=== PATIENT | male | born 1950 | race Two or more races ===

== ENCOUNTER → 2022-04-11 | Outpatient (CLI) | payer MEDICARE, OTHER | END | disposition home or self-care (01) | LOC: Rad HDHVI 08:52 | PROVIDERS: ATTEND Internal Medicine Cardiovascular Disease | DX: I10 Essential (primary) hypertension (principal); E78.00 Pure hypercholesterolemia, unspecified | CPT/HCPCS: 93880 ==

== ENCOUNTER → 2022-04-13 | Outpatient (CLI) | payer MEDICARE, OTHER | END | disposition home or self-care (01) | LOC: Rad HDHVI 07:59 | PROVIDERS: ATTEND Internal Medicine Cardiovascular Disease | DX: I08.3 Combined rheumatic disorders of mitral, aortic and tricuspid valves (principal); R06.02 Shortness of breath; I10 Essential (primary) hypertension | CPT/HCPCS: 93306 ==

== ENCOUNTER → 2022-04-20 | Outpatient (CLI) | payer MEDICARE, OTHER ==
[~2022-04-20] VITALS: Ht 175.3 cm; Wt 79.8 kg
[~2022-04-20] MED LIST: ADENOSINE 67 MG in GIVE UN-DILUTED 0 ML IV ONE; ADENOSINE 90 MG/30 ML INJ IV ONE
== END | disposition home or self-care (01) ==
LOC: Rad HDHVI 08:43
PROVIDERS: ATTEND Internal Medicine Cardiovascular Disease
DX: I10 Essential (primary) hypertension (principal); E78.5 Hyperlipidemia, unspecified; E78.00 Pure hypercholesterolemia, unspecified; R06.02 Shortness of breath; Z79.899 Other long term (current) drug therapy
CPT/HCPCS: 78452; 93005; 96374; 96375; A9500; J0153

== ENCOUNTER → 2022-06-01 | Outpatient (CLI) | payer MEDICARE ==
[~2022-06-01] MED LIST changes: -ADENOSINE 67 MG in GIVE UN-DILUTED 0 ML IV ONE; -ADENOSINE 90 MG/30 ML INJ IV ONE; +ASCO100076 PO; +ASPI1TAB19 PO; +CARB45TA PO; +CHOL500033 PO; +CLOP75TA28 PO; +COEN200C9 PO; +CYAN100088 PO; +FLUO1TAB14 PO; +HYDR-4798 PO; +LISI-275 PO; +MELO1TAB56 PO; +ZINC50TA7 PO
[2022-06-01 10:05] VITALS: BP 164/81
[2022-06-01 10:30] VITALS: BP 158/79
[2022-06-01 12:20] LABS: Basophils # (auto) 0 10 ^3/uL (0-0.2); Basophils % (auto) 0.4 % (0.0-2.0); Eosinophils # (auto) 0 10 ^3/uL (0-0.8); Eosinophils % (auto) 1.3 % (0.0-7.0); Hematocrit 42.4 % (41.0-53.0); Hemoglobin 14.3 g/dL (13.5-17.5); Lymphocytes % (auto) 39.3 % (10.0-50.0); Mean Corpuscular Hemoglobin 30.6 pg (28.0-32.0); Mean Corpuscular Hgb Conc. 33.6 g/dL (32.0-36.0); Mean Corpuscular Volume 90.8 fL (80.0-100.0); Monocytes # (auto) 0.3 10 ^3/uL (0-1.3); Monocytes % (auto) 12.2 % (0.0-12.0); Neutrophils # (auto) 1.2 10 ^3/uL (1.6-8.6); Neutrophils % (auto) 46.8 % (37.0-80.0); Nucleated Red Blood Cells % 0.1 %; Red Blood Cells 4.67 10^6/uL (4.5-5.90); Red Cell Distribution Width 13.8 % (11.8-14.3); White Blood Cell 2.6 10^3/uL (4.4-10.8)
[2022-06-01 12:27] LABS: Potassium 3.7 mmol/L (3.5-5.1)
[2022-06-01 12:30] LABS: INR 0.99 (0.9-1.15); Partial Thromboplastin Time 30.6 sec (24.6-33.4)
[2022-06-01 12:32] LABS: BUN/Creatinine Ratio 15.9; Calcium 8.5 mg/dL (8.5-10.1)
== END | disposition home or self-care (01) ==
LOC: Rad HDHVI 09:53
PROVIDERS: ATTEND Internal Medicine Cardiovascular Disease
DX: R06.02 Shortness of breath (principal)
CPT/HCPCS: 36415; 71046; 80048; 85025; 85610; 85730; 93005; G0463

== ENCOUNTER 2022-06-02 07:08 | Day surgery (SDC) | payer MEDICARE ==
[~2022-06-02] VITALS: Ht 175.3 cm; Wt 79.4 kg
[2022-06-02] VITALS (9 sets, daily range): BP systolic 149–173; BP diastolic 81–90
[2022-06-02] MEDS ORDERED: SODIUM CHL 0.9% 0 ML ONE (09:03)
[2022-06-02] MEDS ORDERED: fentaNYL CITRATE 100 MCG/2 ML VL ONE (09:03)
[2022-06-02] MEDS ORDERED: MIDAZOLAM HCL 2MG/2ML 2ml VIAL (1mg/ml) ONE (09:03)
[2022-06-02] MEDS ORDERED: IOHEXOL 350 MG/ML 100ML IJ ONE (09:03)
[2022-06-02] MEDS ORDERED: ANGIOMAX 250 MG VIAL IV ONE (09:03)
[2022-06-02] MEDS ORDERED: LIDOCAINE 2%HCL (LOCAL ANESTH.) INJ 10ml MDV ONE (09:15)
== END 2022-06-02 12:10 | disposition home or self-care (01) ==
LOC: CATH 07:08
PROVIDERS: ATTEND Internal Medicine Cardiovascular Disease
DX: R07.89 Other chest pain (principal); I25.10 Atherosclerotic heart disease of native coronary artery without angina pectoris; I73.9 Peripheral vascular disease, unspecified; I10 Essential (primary) hypertension; Z79.899 Other long term (current) drug therapy; Z20.822 Contact with and (suspected) exposure to COVID-19
CPT/HCPCS: 93458; C1760; C1894; J1644; J2001; J2250; J3010; Q9967; U0003; 99152

== ENCOUNTER → 2022-07-13 | Outpatient (CLI) | payer MEDICARE ==
[2022-07-13 11:52] VITALS: BP 126/78
[2022-07-13 12:05] VITALS: BP 130/78
== END | disposition home or self-care (01) ==
LOC: CHF HDHVI 10:49
PROVIDERS: ATTEND Internal Medicine Cardiovascular Disease
DX: I11.0 Hypertensive heart disease with heart failure (principal); I50.43 Acute on chronic combined systolic (congestive) and diastolic (congestive) heart failure; I25.118 Atherosclerotic heart disease of native coronary artery with other forms of angina pectoris; I73.9 Peripheral vascular disease, unspecified; R06.02 Shortness of breath; E78.00 Pure hypercholesterolemia, unspecified
CPT/HCPCS: G0166

== ENCOUNTER → 2022-07-14 | Outpatient (CLI) | payer MEDICARE ==
[2022-07-14 11:53] VITALS: BP 150/82
[2022-07-14 12:04] VITALS: BP 150/76
== END | disposition home or self-care (01) ==
LOC: CHF HDHVI 10:42
PROVIDERS: ATTEND Internal Medicine Cardiovascular Disease
DX: I25.118 Atherosclerotic heart disease of native coronary artery with other forms of angina pectoris (principal); I73.9 Peripheral vascular disease, unspecified; R06.02 Shortness of breath; I11.0 Hypertensive heart disease with heart failure; I50.43 Acute on chronic combined systolic (congestive) and diastolic (congestive) heart failure; E78.00 Pure hypercholesterolemia, unspecified
CPT/HCPCS: G0166

== ENCOUNTER → 2022-07-15 | Outpatient (CLI) | payer MEDICARE ==
[2022-07-15 11:04] VITALS: BP 154/80
[2022-07-15 11:41] VITALS: BP 150/84
== END | disposition home or self-care (01) ==
LOC: CHF HDHVI 10:39
PROVIDERS: ATTEND Internal Medicine Cardiovascular Disease
DX: I25.118 Atherosclerotic heart disease of native coronary artery with other forms of angina pectoris (principal); I73.9 Peripheral vascular disease, unspecified; R06.02 Shortness of breath; E78.00 Pure hypercholesterolemia, unspecified; I10 Essential (primary) hypertension
CPT/HCPCS: G0166

== ENCOUNTER → 2022-07-29 | Outpatient (CLI) | payer MEDICARE ==
[2022-07-29 11:50] VITALS: BP 158/80
[2022-07-29 12:03] VITALS: BP 150/78
== END | disposition home or self-care (01) ==
LOC: CHF HDHVI 10:46
PROVIDERS: ATTEND Internal Medicine Cardiovascular Disease
DX: I25.118 Atherosclerotic heart disease of native coronary artery with other forms of angina pectoris (principal); I73.9 Peripheral vascular disease, unspecified; R06.02 Shortness of breath; E78.00 Pure hypercholesterolemia, unspecified; I11.0 Hypertensive heart disease with heart failure; I50.43 Acute on chronic combined systolic (congestive) and diastolic (congestive) heart failure
CPT/HCPCS: G0166

== ENCOUNTER → 2022-08-03 | Outpatient (CLI) | payer MEDICARE ==
[2022-08-03 11:06] VITALS: BP 150/84
[2022-08-03 11:46] VITALS: BP 150/80
== END | disposition home or self-care (01) ==
LOC: CHF HDHVI 10:44
PROVIDERS: ATTEND Internal Medicine Cardiovascular Disease
DX: I11.0 Hypertensive heart disease with heart failure (principal); I50.43 Acute on chronic combined systolic (congestive) and diastolic (congestive) heart failure; I25.118 Atherosclerotic heart disease of native coronary artery with other forms of angina pectoris; E78.00 Pure hypercholesterolemia, unspecified; R06.02 Shortness of breath; I73.9 Peripheral vascular disease, unspecified
CPT/HCPCS: G0166

== ENCOUNTER → 2022-08-04 | Outpatient (CLI) | payer MEDICARE ==
[2022-08-04 11:45] VITALS: BP 132/76
[2022-08-04 11:50] VITALS: BP 138/76
== END | disposition home or self-care (01) ==
LOC: CHF HDHVI 10:40
PROVIDERS: ATTEND Internal Medicine Cardiovascular Disease
DX: I11.0 Hypertensive heart disease with heart failure (principal); I50.43 Acute on chronic combined systolic (congestive) and diastolic (congestive) heart failure; I25.118 Atherosclerotic heart disease of native coronary artery with other forms of angina pectoris; E78.00 Pure hypercholesterolemia, unspecified; R06.02 Shortness of breath; I73.9 Peripheral vascular disease, unspecified
CPT/HCPCS: G0166

== ENCOUNTER → 2022-08-05 | Outpatient (CLI) | payer MEDICARE ==
[2022-08-05 11:40] VITALS: BP 148/76
[2022-08-05 11:49] VITALS: BP 142/80
== END | disposition home or self-care (01) ==
LOC: CHF HDHVI 10:44
PROVIDERS: ATTEND Internal Medicine Cardiovascular Disease
DX: I25.118 Atherosclerotic heart disease of native coronary artery with other forms of angina pectoris (principal); I11.0 Hypertensive heart disease with heart failure; I50.43 Acute on chronic combined systolic (congestive) and diastolic (congestive) heart failure; I73.9 Peripheral vascular disease, unspecified; R06.02 Shortness of breath; E78.00 Pure hypercholesterolemia, unspecified
CPT/HCPCS: G0166

== ENCOUNTER → 2022-08-08 | Outpatient (CLI) | payer MEDICARE ==
[2022-08-08 11:56] VITALS: BP 154/78
[2022-08-08 12:12] VITALS: BP 142/80
== END | disposition home or self-care (01) ==
LOC: CHF HDHVI 10:44
PROVIDERS: ATTEND Internal Medicine Cardiovascular Disease
DX: I25.118 Atherosclerotic heart disease of native coronary artery with other forms of angina pectoris (principal); I50.43 Acute on chronic combined systolic (congestive) and diastolic (congestive) heart failure
CPT/HCPCS: G0166

== ENCOUNTER → 2022-08-10 | Outpatient (CLI) | payer MEDICARE ==
[2022-08-10 12:19] VITALS: BP 140/80
[2022-08-10 12:45] VITALS: BP 140/80
== END | disposition home or self-care (01) ==
LOC: CHF HDHVI 11:00
PROVIDERS: ATTEND Internal Medicine Cardiovascular Disease
DX: I25.118 Atherosclerotic heart disease of native coronary artery with other forms of angina pectoris (principal); I11.0 Hypertensive heart disease with heart failure; I50.43 Acute on chronic combined systolic (congestive) and diastolic (congestive) heart failure; I73.9 Peripheral vascular disease, unspecified; R06.02 Shortness of breath; E78.00 Pure hypercholesterolemia, unspecified
CPT/HCPCS: G0166

== ENCOUNTER → 2022-08-11 | Outpatient (CLI) | payer MEDICARE ==
[2022-08-11 11:41] VITALS: BP 160/84
[2022-08-11 12:04] VITALS: BP 156/86
[2022-08-11 12:18] VITALS: BP 156/86
== END | disposition home or self-care (01) ==
LOC: CHF HDHVI 10:44
PROVIDERS: ATTEND Internal Medicine Cardiovascular Disease
DX: I25.118 Atherosclerotic heart disease of native coronary artery with other forms of angina pectoris (principal); I73.9 Peripheral vascular disease, unspecified; R06.02 Shortness of breath; E78.00 Pure hypercholesterolemia, unspecified; I10 Essential (primary) hypertension
CPT/HCPCS: G0166

== ENCOUNTER → 2022-08-12 | Outpatient (CLI) | payer MEDICARE ==
[2022-08-12 12:03] VITALS: BP 158/86
[2022-08-12 12:16] VITALS: BP 160/80
== END | disposition home or self-care (01) ==
LOC: CHF HDHVI 10:45
PROVIDERS: ATTEND Internal Medicine Cardiovascular Disease
DX: I25.118 Atherosclerotic heart disease of native coronary artery with other forms of angina pectoris (principal); I11.0 Hypertensive heart disease with heart failure; I50.43 Acute on chronic combined systolic (congestive) and diastolic (congestive) heart failure; I73.9 Peripheral vascular disease, unspecified; R06.02 Shortness of breath; E78.00 Pure hypercholesterolemia, unspecified
CPT/HCPCS: G0166

== ENCOUNTER → 2022-08-18 | Outpatient (CLI) | payer MEDICARE ==
[2022-08-18 12:00] VITALS: BP 146/78
[2022-08-18 12:07] VITALS: BP 142/74
== END | disposition home or self-care (01) ==
LOC: CHF HDHVI 10:42
PROVIDERS: ATTEND Internal Medicine Cardiovascular Disease
DX: I25.118 Atherosclerotic heart disease of native coronary artery with other forms of angina pectoris (principal); I11.0 Hypertensive heart disease with heart failure; I50.43 Acute on chronic combined systolic (congestive) and diastolic (congestive) heart failure; R06.02 Shortness of breath; I73.9 Peripheral vascular disease, unspecified; E78.00 Pure hypercholesterolemia, unspecified
CPT/HCPCS: G0166

== ENCOUNTER → 2022-08-22 | Outpatient (CLI) | payer MEDICARE ==
[2022-08-22 12:08] VITALS: BP 150/86
[2022-08-22 12:15] VITALS: BP 150/80
== END | disposition home or self-care (01) ==
LOC: CHF HDHVI 10:51
PROVIDERS: ATTEND Internal Medicine Cardiovascular Disease
DX: I25.118 Atherosclerotic heart disease of native coronary artery with other forms of angina pectoris (principal); I73.9 Peripheral vascular disease, unspecified; R06.02 Shortness of breath; E78.00 Pure hypercholesterolemia, unspecified; I10 Essential (primary) hypertension
CPT/HCPCS: G0166

== ENCOUNTER → 2022-08-24 | Outpatient (CLI) | payer MEDICARE ==
[2022-08-24 11:52] VITALS: BP 146/80
[2022-08-24 12:00] VITALS: BP 138/80
== END | disposition home or self-care (01) ==
LOC: CHF HDHVI 10:20
PROVIDERS: ATTEND Internal Medicine Cardiovascular Disease
DX: I25.118 Atherosclerotic heart disease of native coronary artery with other forms of angina pectoris (principal); I11.0 Hypertensive heart disease with heart failure; I50.43 Acute on chronic combined systolic (congestive) and diastolic (congestive) heart failure; R06.02 Shortness of breath; I73.9 Peripheral vascular disease, unspecified; E78.00 Pure hypercholesterolemia, unspecified
CPT/HCPCS: G0166

== ENCOUNTER → 2022-08-25 | Outpatient (CLI) | payer MEDICARE ==
[2022-08-25 11:47] VITALS: BP 138/80
[2022-08-25 11:56] VITALS: BP 152/84
== END | disposition home or self-care (01) ==
LOC: CHF HDHVI 10:29
PROVIDERS: ATTEND Internal Medicine Cardiovascular Disease
DX: I25.118 Atherosclerotic heart disease of native coronary artery with other forms of angina pectoris (principal); I11.0 Hypertensive heart disease with heart failure; I50.43 Acute on chronic combined systolic (congestive) and diastolic (congestive) heart failure; R06.02 Shortness of breath; I73.9 Peripheral vascular disease, unspecified; E78.00 Pure hypercholesterolemia, unspecified
CPT/HCPCS: G0166

== ENCOUNTER → 2022-08-26 | Outpatient (CLI) | payer MEDICARE ==
[2022-08-26 11:59] VITALS: BP 162/90
[2022-08-26 12:07] VITALS: BP 150/84
== END | disposition home or self-care (01) ==
LOC: CHF HDHVI 10:43
PROVIDERS: ATTEND Internal Medicine Cardiovascular Disease
DX: I25.118 Atherosclerotic heart disease of native coronary artery with other forms of angina pectoris (principal); I11.0 Hypertensive heart disease with heart failure; I50.43 Acute on chronic combined systolic (congestive) and diastolic (congestive) heart failure; R06.02 Shortness of breath; I73.9 Peripheral vascular disease, unspecified; E78.00 Pure hypercholesterolemia, unspecified
CPT/HCPCS: G0166

== ENCOUNTER → 2022-08-31 | Outpatient (CLI) | payer MEDICARE ==
[2022-08-31 12:05] VITALS: BP 130/70
[2022-08-31 12:15] VITALS: BP 124/76
== END | disposition home or self-care (01) ==
LOC: CHF HDHVI 10:48
PROVIDERS: ATTEND Internal Medicine Cardiovascular Disease
DX: I25.118 Atherosclerotic heart disease of native coronary artery with other forms of angina pectoris (principal); R06.02 Shortness of breath; I73.9 Peripheral vascular disease, unspecified; I10 Essential (primary) hypertension; E78.00 Pure hypercholesterolemia, unspecified
CPT/HCPCS: G0166

== ENCOUNTER → 2022-09-01 | Outpatient (CLI) | payer MEDICARE ==
[2022-09-01 13:05] VITALS: BP 140/76
[2022-09-01 13:09] VITALS: BP 150/74
== END | disposition home or self-care (01) ==
LOC: CHF HDHVI 10:41
PROVIDERS: ATTEND Internal Medicine Cardiovascular Disease
DX: I25.118 Atherosclerotic heart disease of native coronary artery with other forms of angina pectoris (principal); I73.9 Peripheral vascular disease, unspecified; R06.02 Shortness of breath; I10 Essential (primary) hypertension; E78.00 Pure hypercholesterolemia, unspecified
CPT/HCPCS: G0166

== ENCOUNTER → 2022-09-05 | Outpatient (CLI) | payer MEDICARE ==
[2022-09-05 11:14] VITALS: BP 150/80
[2022-09-05 11:51] VITALS: BP 144/80
== END | disposition home or self-care (01) ==
LOC: CHF HDHVI 10:50
PROVIDERS: ATTEND Internal Medicine Cardiovascular Disease
DX: I25.118 Atherosclerotic heart disease of native coronary artery with other forms of angina pectoris (principal); I50.43 Acute on chronic combined systolic (congestive) and diastolic (congestive) heart failure
CPT/HCPCS: G0166

== ENCOUNTER → 2022-09-07 | Outpatient (CLI) | payer MEDICARE ==
[2022-09-07 12:08] VITALS: BP 138/74
[2022-09-07 12:14] VITALS: BP 120/76
== END | disposition home or self-care (01) ==
LOC: CHF HDHVI 10:41
PROVIDERS: ATTEND Internal Medicine Cardiovascular Disease
DX: I25.118 Atherosclerotic heart disease of native coronary artery with other forms of angina pectoris (principal); I11.0 Hypertensive heart disease with heart failure; I50.43 Acute on chronic combined systolic (congestive) and diastolic (congestive) heart failure; R06.02 Shortness of breath; E78.00 Pure hypercholesterolemia, unspecified; I73.9 Peripheral vascular disease, unspecified
CPT/HCPCS: G0166

== ENCOUNTER → 2022-09-08 | Outpatient (CLI) | payer MEDICARE ==
[2022-09-08 11:06] VITALS: BP 132/64
[2022-09-08 11:40] VITALS: BP 128/70
== END | disposition home or self-care (01) ==
LOC: CHF HDHVI 10:39
PROVIDERS: ATTEND Internal Medicine Cardiovascular Disease
DX: I25.118 Atherosclerotic heart disease of native coronary artery with other forms of angina pectoris (principal); I11.0 Hypertensive heart disease with heart failure; I50.43 Acute on chronic combined systolic (congestive) and diastolic (congestive) heart failure; E78.00 Pure hypercholesterolemia, unspecified; R06.02 Shortness of breath; I73.9 Peripheral vascular disease, unspecified
CPT/HCPCS: G0166

== ENCOUNTER → 2022-09-09 | Outpatient (CLI) | payer MEDICARE ==
[2022-09-09 11:22] VITALS: BP 132/74
[2022-09-09 11:41] VITALS: BP 142/76
== END | disposition home or self-care (01) ==
LOC: CHF HDHVI 10:36
PROVIDERS: ATTEND Internal Medicine Cardiovascular Disease
DX: I25.118 Atherosclerotic heart disease of native coronary artery with other forms of angina pectoris (principal); I10 Essential (primary) hypertension; E78.00 Pure hypercholesterolemia, unspecified; I73.9 Peripheral vascular disease, unspecified; R06.02 Shortness of breath
CPT/HCPCS: G0166

== ENCOUNTER → 2022-09-19 | Outpatient (CLI) | payer MEDICARE ==
[2022-09-19 11:18] VITALS: BP 138/76
[2022-09-19 11:35] VITALS: BP 140/78
== END | disposition home or self-care (01) ==
LOC: CHF HDHVI 10:35
PROVIDERS: ATTEND Internal Medicine Cardiovascular Disease
DX: I25.118 Atherosclerotic heart disease of native coronary artery with other forms of angina pectoris (principal); I11.0 Hypertensive heart disease with heart failure; I50.43 Acute on chronic combined systolic (congestive) and diastolic (congestive) heart failure; E78.00 Pure hypercholesterolemia, unspecified; I73.9 Peripheral vascular disease, unspecified; R06.02 Shortness of breath
CPT/HCPCS: G0166

== ENCOUNTER → 2022-09-21 | Outpatient (CLI) | payer MEDICARE ==
[2022-09-21 11:10] VITALS: BP 148/80
[2022-09-21 11:46] VITALS: BP 150/78
== END | disposition home or self-care (01) ==
LOC: CHF HDHVI 10:37
PROVIDERS: ATTEND Internal Medicine Cardiovascular Disease
DX: I25.118 Atherosclerotic heart disease of native coronary artery with other forms of angina pectoris (principal); R06.02 Shortness of breath; E78.00 Pure hypercholesterolemia, unspecified; I10 Essential (primary) hypertension; I73.9 Peripheral vascular disease, unspecified
CPT/HCPCS: G0166

== ENCOUNTER → 2022-09-26 | Outpatient (CLI) | payer MEDICARE ==
[2022-09-26 11:20] VITALS: BP 138/76
[2022-09-26 11:53] VITALS: BP 152/68
== END | disposition home or self-care (01) ==
LOC: CHF HDHVI 10:51
PROVIDERS: ATTEND Internal Medicine Cardiovascular Disease
DX: I25.118 Atherosclerotic heart disease of native coronary artery with other forms of angina pectoris (principal); I11.0 Hypertensive heart disease with heart failure; I50.43 Acute on chronic combined systolic (congestive) and diastolic (congestive) heart failure; R06.02 Shortness of breath; I73.9 Peripheral vascular disease, unspecified; E78.00 Pure hypercholesterolemia, unspecified
CPT/HCPCS: G0166

== ENCOUNTER → 2022-09-28 | Outpatient (CLI) | payer MEDICARE ==
[2022-09-28 11:08] VITALS: BP 138/74
[2022-09-28 11:52] VITALS: BP 136/78
== END | disposition home or self-care (01) ==
LOC: CHF HDHVI 10:43
PROVIDERS: ATTEND Internal Medicine Cardiovascular Disease
DX: I25.118 Atherosclerotic heart disease of native coronary artery with other forms of angina pectoris (principal); I11.0 Hypertensive heart disease with heart failure; I50.43 Acute on chronic combined systolic (congestive) and diastolic (congestive) heart failure; R06.02 Shortness of breath; I73.9 Peripheral vascular disease, unspecified; E78.00 Pure hypercholesterolemia, unspecified
CPT/HCPCS: G0166

== ENCOUNTER → 2022-10-03 | Outpatient (CLI) | payer MEDICARE ==
[2022-10-03 11:14] VITALS: BP 136/72
[2022-10-03 11:52] VITALS: BP 122/70
== END | disposition home or self-care (01) ==
LOC: CHF HDHVI 10:35
PROVIDERS: ATTEND Internal Medicine Cardiovascular Disease
DX: I11.0 Hypertensive heart disease with heart failure (principal); I50.43 Acute on chronic combined systolic (congestive) and diastolic (congestive) heart failure; I25.118 Atherosclerotic heart disease of native coronary artery with other forms of angina pectoris; I73.9 Peripheral vascular disease, unspecified; R06.02 Shortness of breath; E78.00 Pure hypercholesterolemia, unspecified
CPT/HCPCS: G0166

== ENCOUNTER → 2022-10-05 | Outpatient (CLI) | payer MEDICARE ==
[2022-10-05 12:34] VITALS: BP 142/74
[2022-10-05 12:39] VITALS: BP 138/80
== END | disposition home or self-care (01) ==
LOC: CHF HDHVI 10:41
PROVIDERS: ATTEND Internal Medicine Cardiovascular Disease
DX: I11.0 Hypertensive heart disease with heart failure (principal); I50.43 Acute on chronic combined systolic (congestive) and diastolic (congestive) heart failure; I25.118 Atherosclerotic heart disease of native coronary artery with other forms of angina pectoris; I73.9 Peripheral vascular disease, unspecified; E78.00 Pure hypercholesterolemia, unspecified; R06.02 Shortness of breath
CPT/HCPCS: G0166

== ENCOUNTER → 2022-10-06 | Outpatient (CLI) | payer MEDICARE ==
[2022-10-06 11:13] VITALS: BP 150/82
[2022-10-06 11:50] VITALS: BP 152/84
== END | disposition home or self-care (01) ==
LOC: CHF HDHVI 10:39
PROVIDERS: ATTEND Internal Medicine Cardiovascular Disease
DX: I11.0 Hypertensive heart disease with heart failure (principal); I50.43 Acute on chronic combined systolic (congestive) and diastolic (congestive) heart failure; I25.118 Atherosclerotic heart disease of native coronary artery with other forms of angina pectoris; I73.9 Peripheral vascular disease, unspecified; R06.02 Shortness of breath; E78.00 Pure hypercholesterolemia, unspecified
CPT/HCPCS: G0166

== ENCOUNTER → 2022-10-07 | Outpatient (CLI) | payer MEDICARE ==
[2022-10-07 11:03] VITALS: BP 142/68
[2022-10-07 11:40] VITALS: BP 142/82
== END | disposition home or self-care (01) ==
LOC: CHF HDHVI 10:38
PROVIDERS: ATTEND Internal Medicine Cardiovascular Disease
DX: I11.0 Hypertensive heart disease with heart failure (principal); I50.43 Acute on chronic combined systolic (congestive) and diastolic (congestive) heart failure; I25.118 Atherosclerotic heart disease of native coronary artery with other forms of angina pectoris; R06.02 Shortness of breath; I73.9 Peripheral vascular disease, unspecified; E78.00 Pure hypercholesterolemia, unspecified
CPT/HCPCS: G0166

== ENCOUNTER → 2023-01-18 | Outpatient (CLI) | payer MEDICARE, OTHER ==
[~2023-01-18] VITALS: Ht 175.3 cm; Wt 84.4 kg
[~2023-01-18] MED LIST changes: +ADENOSINE 71 MG in GIVE UN-DILUTED 0 ML IV ONE; +ADENOSINE 90 MG/30 ML INJ IV ONE; +MELO-335 PO; -MELO1TAB56 PO
== END | disposition home or self-care (01) ==
LOC: Rad HDHVI 08:14
PROVIDERS: ATTEND Internal Medicine Cardiovascular Disease
DX: I10 Essential (primary) hypertension (principal); R06.02 Shortness of breath; I20.0 Unstable angina
CPT/HCPCS: 78452; 93005; 96374; 96375; A9500; J0153

== ENCOUNTER → 2023-01-23 | Outpatient (CLI) | payer MEDICARE, OTHER ==
[~2023-01-23] MED LIST changes: -ADENOSINE 71 MG in GIVE UN-DILUTED 0 ML IV ONE; -ADENOSINE 90 MG/30 ML INJ IV ONE
== END | disposition home or self-care (01) ==
LOC: Rad HDHVI 09:45
PROVIDERS: ATTEND Internal Medicine Cardiovascular Disease
DX: I08.1 Rheumatic disorders of both mitral and tricuspid valves (principal); I10 Essential (primary) hypertension; E78.5 Hyperlipidemia, unspecified
CPT/HCPCS: 93306

== ENCOUNTER → 2023-02-28 | Outpatient (CLI) | payer MEDICARE, OTHER ==
[~2023-02-28] VITALS: Ht 175.3 cm; Wt 83.9 kg
== END | disposition home or self-care (01) ==
LOC: Rad HDHVI 08:06
PROVIDERS: ATTEND Internal Medicine Cardiovascular Disease
DX: I11.0 Hypertensive heart disease with heart failure (principal); I50.9 Heart failure, unspecified; I42.0 Dilated cardiomyopathy; E78.00 Pure hypercholesterolemia, unspecified; R53.1 Weakness
CPT/HCPCS: 78472; 96374; 96375; A9505

== ENCOUNTER 2023-10-04 09:56 | Emergency (ER) | payer MEDICARE, OTHER ==
[~2023-10-04] VITALS: Ht 175.3 cm; Wt 83.0 kg
[2023-10-04 10:05] VITALS: TEMP 97.4
[2023-10-04 12:08] VITALS: BP 160/98; PULSE 76; RESP 18; O2SAT 96
[2023-10-04] MEDS: cloNIDine HCL 0.1 MG TAB PO ONE (12:12)
[2023-10-04] MEDS ORDERED: CLON0.1T PO (12:29)
== END 2023-10-04 12:29 | disposition home or self-care (01) ==
LOC: ER 09:56
DX: I10 Essential (primary) hypertension (principal); Z76.0 Encounter for issue of repeat prescription

== ENCOUNTER 2025-02-10 10:06 | Inpatient (IN) | payer OTHER ==
[~2025-02-10] VITALS: Ht 175.3 cm; Wt 93.2 kg
[~2025-02-10 10:06] MED LIST changes: +CLON0.1T PO; -MELO-335 PO; +MELO15TA29 PO
--- NOTE | 2025-02-10 10:21 | ED.PDOC ---
History of Present Illness HPI Comments 74-year-old male who comes in with chief complaint of what seems to be possible syncopal episode versus a seizure. The patient was outside doing yd work with his grandson. He states that he has been outside since approximately 7:00 a.m. in the heat. He started to get somewhat lightheaded so he was headed into the house and then became somewhat lightheaded and sat down on the porch. Following this, the patient had a syncopal episode lasting approximately 1 minute which was witnessed by his family. They stated that the patient was having a shaking episode which seemed to be consistent with a seizure. The patient has no history of seizures. He states that he did not eat any food today. EN route, the patient's Accu-Chek was 157. Upon arrival, the patient is able to answer all questions appropriately. Patient was also 90% on air Time Seen by MD: 10:08 Primary Care Provider: UZMA Reviewed Notes: Nurses Notes, Medications, Allergies (No allergies to medications) Allergies: Coded Allergies: No Known Drug Allergy (Verified Allergy, Unknown, 06/01/22) Home Meds Active Scripts Clonidine Hydrochloride (Clonidine Hcl) 0.1 Mg Tab, 0.1 MG PO BID, #20 TAB Prov:DANIA BARRAGAN 10/04/23 Reported Medications Clopidogrel Bisulfate (Plavix) 75 Mg Tab, 1 TAB PO QAM for HEART DISEASE 06/01/22 Hydrocodone-Acetaminophen (Hydrocodone Bitartrate/AC 10-325 mg) 1 Tab Tab, 1 TAB PO Q6HR PRN for CHRONIC BACK PAIN 06/01/22 Coenzyme Q10 (Ubidecarenone) (Co Q-10) 200 Mg Cap, 1 CAP PO DAILY for SUPPLEMENT 06/01/22 Lisinopril (Lisinopril) 5 Mg Tab, 1 TAB PO QPM for HYPERTENSION 06/01/22 Aspirin (Aspirin) 81 Mg Tab, 1 TAB PO QPM for HEART ATTACK PREVENTION 06/01/22 Zinc Gluconate (Zinc) 50 Mg Tab, 1 TAB PO DAILY for SUPPLEMENT 06/01/22 Ascorbic Acid (Vitamin C) 1,000 Mg Tab, 1 TAB PO DAILY for SUPPLEMENT 06/01/22 Cyanocobalamin (Vitamin B-12) 1,000 Mcg Tab, 1 TAB PO DAILY for SUPPLEMENT 06/01/22 Iron (Feosol) 45 Mg Tab, 1 TAB PO DAILY for SUPPLEMENT 06/01/22 Cholecalciferol (Vitamin D-3) 5,000 Unit Cap, 1 CAP PO DAILY for SUPPLEMENT 06/01/22 Fluoxetine HCl (Pmdd) (Fluoxetine HCl) 20 Mg Tab, 20 MG PO QAM for DEPRESSION 06/01/22 Meloxicam (Meloxicam) 15 Mg Tab, 1 TAB PO QAM for ARTHRITIS 06/01/22 Information Source: Patient, Emergency Med Personnel Mode of Arrival: EMS Severity: Moderate Timing: Minutes Duration: Intermittent Prehospital treatment: Accucheck (157), Equine Internship, IVF Associated signs and symptoms No associated chest pain or shortness for breath Past Medical History PAST MEDICAL HISTORY: Cancer (Prostate cancer), HTN Surgical History: Cholecystectomy, Tonsillectomy Surgical History (Other): Back surgery Family History Family History: Family hx of Cancer Social History Smoker: Non-Smoker Alcohol: Denies ETOH Use Drugs: Denies Drug Use Lives In: Home Physical Exam General Appearance: Moderate Distress HEENT: Normal ENT Inspection, Pharynx Normal, TMs Normal Neck: Full Range of Motion, Non-Tender, Normal, Normal Inspection Respiratory: Chest Non-Tender, Lungs Clear, No Accessory Muscle Use, No Re spiratory Distress, Normal Breath Sounds Cardiovascular: No Edema, No JVD, No Murmur, No Gallop, Normal Peripheral Pulses, Regular Rate/Rhythm Breast Exam: Deferred Gastrointestinal: No Organomegaly, Non Tender, No Pulsatile Mass, Normal Bowel Sounds, Soft Genitalia: Deferred Pelvic: Deferred Rectal: Deferred Extremities: No calf tenderness, Normal capillary refill, Normal inspection, Normal range of motion, Non-tender, No pedal edema Musculoskeletal : Apperance: Normal Neurologic: Alert, technical services specialist II-XII nml as Tested, Motor Weakness, Normal Affect, Normal Mood, No Sensory Deficits Cerebellar Function: Unable to Test Reflexes: Normal Skin: Dry, Normal Color, Warm Lymphatic: No Adenopathy Was a procedure done? Was a procedure done?: No EKG EKG : Pulse Rate (adult): 65 [place]: Normal Cardiac Rhythm: NSR Block: None ST: Nonsp Differential Dx Considerations may include: Generalized weakness, electrolyte imbalance, dehydration, seizures X-Ray, Labs, Meds, VS Vital Signs Date Time Temp Pulse Resp B/P (MAP) Pulse Ox O2 Delivery O2 Flow Rate FiO2 7/14/25 10:30 97.6 63 16 123/63 (83) 97 97.6 02/10/25 10:30 Nasal Cannula* 2 28 02/10/25 10:21 65 02/10/25 10:18 65 02/10/25 10:17 97.8 65 14 116/70 (85) 94 97.8 Lab Test 02/10/25 11:37 02/10/25 11:30 02/10/25 10:27 Range/Units Urine Color Pending Urine Clarity Pending Urine pH Pending Urine Specific [place] Pending Urine Protein Pending Urine Ketones Pending Urine Blood Pending Urine Nitrite Pending Urine Bilirubin Pending Urine Urobilinogen Pending Urine Leukocyte Esterase Pending Urine RBC Pending Urine Microscopic WBC Pending Urine Squamous Epithelial Cells Pending Urine Bacteria Pending Urine Glucose Pending Troponin I High Sensitivity 3 L 3 L </=54 ng/L White Blood Count 5.6 4.4-10.8 10^3/uL Red Blood Count 5.04 4.5-5.90 10^6/uL Hemoglobin 15.5 13.5-17.5 g/dL Hematocrit 45.2 41.0-53.0 % Mean Corpuscular Volume 89.6 80.0-100.0 fL Mean Corpuscular Hemoglobin 30.6 28.0-32.0 pg Mean Corpuscular Hemoglobin Concent 34.2 32.0-36.0 g/dL Red Cell Distribution Width 13.3 11.8-14.3 % Platelet Count 153 140-450 10^3/uL Mean Platelet Volume 9.2 6.9-10.8 fL Neutrophils (%) (Auto) 77.1 37.0-80.0 % Lymphocytes (%) (Auto) 16.6 10.0-50.0 % Monocytes (%) (Auto) 5.3 0.0-12.0 % Eosinophils (%) (Auto) 0.6 0.0-7.0 % Basophils (%) (Auto) 0.4 0.0-2.0 % Neutrophils # (Auto) 4.3 1.6-8.6 10 ^3/uL Lymphocytes # (Auto) 0.9 0.4-5.4 10 ^3/uL Monocytes # (Auto) 0.3 0-1.3 10 ^3/uL Eosinophils # (Auto) 0 0-0.8 10 ^3/uL Basophils # (Auto) 0 0-0.2 10 ^3/uL Nucleated Red Blood Cells 0.1 % Sodium Level 142 136-145 mmol/L Potassium Level 3.9 3.5-5.1 mmol/L Chloride Level 108 H 98-107 mmol/L Carbon Dioxide Level 24 20-31 mmol/L Anion Gap 10 5-15 Blood Urea Nitrogen 16 9-23 mg/dL Creatinine 1.44 H 0.700-1.30 mg/dL Glomerular Filtration Rate Calc 52 >90 mL/min BUN/Creatinine Ratio 11.1 10.0-20.0 Serum Glucose 143 H 74-106 mg/dL Calcium Level 10.4 8.7-10.4 mg/dL Plasma/Serum Blood Alcohol < 3.0 <10 mg/dL Current Medications Medications (Trade) Dose Ordered Sig/Pedro Route Start Time Stop Time Status Last Admin Sodium Chloride 500 ml @ 500 mls/hr Q1H ONCE IVB 02/10/25 10:15 02/10/25 11:14 DC 02/10/25 10:38 IV Hep-Lock was established EXAM: CT HEAD WITHOUT CONTRAST IMPRESSION: 1. No evidence of acute intracranial abnormality IV HEP-LOCK WAS ESTABLISHED THE PATIENT WAS GIVEN NORMAL SALINE AT A 500 CC BOLUS THE PATIENT'S CBC IS WITHIN LIMITS CHEMISTRY PANEL IS WITHIN NORMAL LIMITS EXCEPT CREATININE FOUR THE PATIENT'S TROPONIN LEVEL IS NEGATIVE X2 THE PATIENT IS BEING ADMITTED TO THE HOSPITALIST Images Reviewed?: Images reviewed and evaluated by me Time of 1ST Reevaluation: 10:20 Reevaluation 1ST: Unchanged Patient Education/Counseling: Diagnosis, Treatment, Prognosis Family Education/Counseling: No Family Present SEPSIS Sepsis Screen Physician Orders Urinalysis (02/10/25 10:09) Head Without Contrast (02/10/25 10:09) Equine Internship (02/10/25 10:09) Pulse Oximetry (02/10/25 10:09) Blood Pressure (02/10/25 10:09) Heplock Iv (02/10/25 10:09) Troponin-I Hs (02/10/25 13:09) Electrocardigram (02/10/25 11:09) Electrocardigram (02/10/25 13:09) Aspirin Tablet (02/11/25 10:00) Hydralazine Injection (Apresoline Inject (02/10/25 12:15) Fluoxetine Capsule (Prozac Capsule) (02/11/25 10:00) Tamsulosin Hydrochloride (Flomax) (02/10/25 18:00) Allergies (02/10/25 12:01) Code Status (02/10/25 12:01) Sodium Chloride Lock (Saline Lock Ns) (02/10/25 14:00) Oxygen Per Hour (02/10/25 12:01) Hydrocodone-Acet 5/325mg Tab ([place] /32 (02/10/25 12:15) Ondansetron Hcl (Zofran) (02/10/25 12:15) Docusate Sodium Capsule (Colace Capsule) (02/10/25 12:15) Ascorbic Acid Tablet (Vitamin C Tablet) (02/10/25 22:00) Fall Risk Precautions In Place QSHIFT (02/10/25 12:01) Complete Blood Count (02/11/25 04:00) Comprehensive Metabolic Panel (02/11/25 04:00) Cardiac Diet-2gna,Lofat,Lochol (02/10/25 Lunch) Condition: Serious (02/10/25 12:01) Acetaminophen Tablet (Tylenol Tablet) (02/10/25 12:15) Maintain Bed Rest (02/10/25 12:01) Sequential Compression Device (02/10/25 ) Vital Signs Date Time Temp Pulse Resp B/P (MAP) Pulse Ox O2 Delivery O2 Flow Rate FiO2 02/10/25 10:30 97.6 63 16 123/63 (83) 97 97.6 02/10/25 10:30 Nasal Cannula* 2 28 02/10/25 10:21 65 02/10/25 10:18 65 02/10/25 10:17 97.8 65 14 116/70 (85) 94 97.8 Laboratory Tests Test 02/10/25 10:27 White Blood Count 5.6 10^3/uL (4.4-10.8) Medications Medications Dose Ordered Sig/Pedro Route Start Time Stop Time Status Last Admin Dose Admin Sodium Chloride 500 ml @ 500 mls/hr Q1H ONCE IVB 02/10/25 10:15 02/10/25 11:14 DC 02/10/25 10:38 Departure 1 Departure Time of Disposition: 12:30 Impression: Primary Impression: Dehydration Additional Impression: Autonomic dysfunction Disposition: 09 ADMITTED INPATIENT Admit to: Tele Condition: Fair Critical Care Note Critical Care Time?: Yes (45 min-critical care time only) Stability Stability form required: Yes Unstable for transfer: Telemetry monitoring (Telemetry monitoring required), ED Physician Assesment (Clinical assesment) Heart Score Heart Score: Heart Score Response (Comments) Value History N/A 0 EKG N/A 0 Age N/A 0 Risk Factors N/A 0 Troponin N/A 0 Total 0 I personally scribed for LUZ HERNANDEZ MD ([email or web address]) on 02/10/25 at 11:57. Electronically submitted by Monica Yanes ([email or web address]). LUZ HERNANDEZ MD Feb 10, 2025 10:21
--- NOTE | 2025-02-10 10:21 | ECG ---
[facility] Test Date: 2025-02-10 Test Time: 10:18:34 Pat Name: VEDA FUENTES Department: ER Room: [address] [place] [address] Gender: M Senior Mechanical Project Engineer: ANIL : 1950 Requested By: LUZ HERNANDEZ Order Number: [id number] Reading MD: Henry Amato Measurements Intervals [place] Rate: 65 P: 72 TN: 150 QRS: 19 QRSD: 93 T: -32 QT: 425 QTc: 442 Interpretive Statements Sinus rhythm Low voltage, precordial leads Borderline T abnormalities, inferior leads Electronically Signed On 02-10-2025 19:35:51 PDT by Henry Amato Please click the below link to view image of tracing.
[2025-02-10] MEDS: SODIUM CHLORIDE 0.9% 500 ML IVB ONE (10:38)
[2025-02-10 11:05] LABS: Hematocrit 45.2 % (41.0-53.0); Hemoglobin 15.5 g/dL (13.5-17.5); Mean Corpuscular Hemoglobin 30.6 pg (28.0-32.0); Mean Corpuscular Volume 89.6 fL (80.0-100.0); Nucleated Red Blood Cells % 0.1 %
[2025-02-10 11:06] LABS: Anion Gap 10 (5-15); Carbon Dioxide 24 mmol/L (20-31); Potassium 3.9 mmol/L (3.5-5.1); Sodium 142 mmol/L (136-145)
[2025-02-10 11:11] LABS: Calcium 10.4 mg/dL (8.7-10.4); Chloride 108 mmol/L (98-107)
[2025-02-10 11:12] LABS: BUN/Creatinine Ratio 11.1 (10.0-20.0); Blood Urea Nitrogen 16 mg/dL (9-23)
[2025-02-10 11:13] LABS: Glucose 143 mg/dL (74-106)
--- NOTE | 2025-02-10 11:21 | DVH ---
EXAM: CT HEAD WITHOUT CONTRAST INDICATION: Syncope TECHNIQUE: CT of the head without intravenous contrast. Coronal and sagittal reformatted images are s ubmitted. Radiation Dose : 1. Head: CT Dose: CTDI volume is 53.54 mGy. Dose-length product is 967.09 mGy*cm The dose indicators for CT are the volume Computed Tomography (CT) Dose Index (CTDIvol) and the Dose Length Product (DLP), and are measured in units of mGy and mGy-cm, respectively. These indicators are not patient dose, but values generated from the CT scanner acquisition factors. The report includes radiation exposure data for exposures received during this examination. All CT scans at this medical facility are performed using dose modulation techniques as appropriate to a performed exam including the following: Automated exposure control was utilized; adjustment of the MA and/or KV according to patient size; and use of iterative reconstruction technique. COMPARISON: None FINDINGS: There is no evidence of acute intracranial hemorrhage, extra-axial collection, mass effect, midline s hift, herniation or hydrocephalus. The ventricles, sulci and cisterns are age appropriate. The harkins-white differentiation is intact. The visualized paranasal sinuses and mastoid air cells are clear. No depressed calvarial fracture. The surrounding soft tissues are unremarkable. IMPRESSION: 1. No evidence of acute intracranial abnormality.
[2025-02-10] MEDS ORDERED: HYDROcodone-ACET 5/325MG TAB PO PRN (12:15)
[2025-02-10] MEDS ORDERED: ONDANSETRON HCL 4 MG/2 ML VIAL IV PRN (12:15)
[2025-02-10] MEDS ORDERED: DOCUSATE SOD 100 MG CAP PO PRN (12:15)
[2025-02-10] MEDS ORDERED: hydrALAZINE HCL 20 MG/ML VL IV PRN (12:15)
--- NOTE | 2025-02-10 12:25 | DVHHP2 ---
History of Present Illness Reason for Visit: Seizures History of Present Illness The patient is a 74-year-old male with past medical history of prostate cancer, depression, and hypertension who presented to [facility] ED with complaint of seizure. The patient was outside doing yard work with his grandson in the heat when he started to get somewhat lightheaded, so he headed into the house, then became more lightheaded and sat down on the porch. Following this, the patient had a syncopal episode lasting approximately 1 minute which was witnessed by his family, with shaking episode which seemed to be consistent with a seizure. The patient has no history of seizures. Patient was seen and evaluated in the ED, laboratory data shows WBC 5.6, platelets 153, sodium 142, potassium 3.9, BUN 16, creatinine 1.44, glucose 143, calcium 10.4, troponin three, blood pressure 123/63, heart rate 63, temperature 97.6 F, O2 saturation 97% on oxygen. Head CT showed no evidence of acute intracranial abnormality. On my assessment, patient denied chest pain, no headache, no dizziness, no diaphoresis, currently on oxygen, no nausea, no vomiting, no fever, no chills. Patient was admitted for further evaluation and medical management. Past Medical History Cancer (Prostate cancer), HTN, Depression. Past Surgical History Cholecystectomy, Tonsillectomy, Back surgery Family History Reviewed, noncontributory to the management of this case. Past Social History The patient lives at home, denies smoking, alcohol or illicit drugs abuse. Review of Systems Constitutional: Yes: Weakness; No: Fever, Chills, Sweats, Malaise, Other Eyes: No: Pain, Vision change, Conjunctivae inflammation, Eyelid inflammation, Other, Redness ENT: No: Ear pain, Ear discharge, Nose pain, Nose discharge, Nose congestion, Mouth pain, Mouth swelling, Throat pain, Throat swelling, Other Respiratory: No: Cough, Dry, Shortness of breath, SOB with excertion, Wheezing, Hemoptysis, Pleuritic Pain, Sputum, Wheezing, Other Cardiovascular: No: Chest Pain, Palpitations, Orthopnea, Paroxysmal Noc. Dyspnea, Edema, Lt Headedness, Other Gastrointestinal: No: Nausea, Vomiting, Abdominal Pain, Diarrhea, Constipation, Melena, Hematochezia, Other Genitourinary: No Dysuria, No Frequency, No Incontinence, No Hematuria, No Retention, No Other Musculoskeletal: No: other, neck pain, shoulder pain, arm pain, back pain, hand pain, leg pain, foot pain Skin: No: Rash, Lesions, Jaundice, Bruising, Other Neurological: Seizures; No: Weakness, Numbness, Incoordination, Change in speech, Confusion, Other Allergies: Coded Allergies: No Known Drug Allergy (Verified Allergy, Unknown, 06/01/22) Medications Current Medications Medications Dose Ordered Sig/Pedro Route Start Time Stop Time Status Last Admin Dose Admin Aspirin 81 mg DAILY PO 02/11/25 10:00 UNV Hydralazine HCl 10 mg Q6HP PRN IV 02/10/25 12:15 UNV Fluoxetine HCl 20 mg DAILY PO 02/11/25 10:00 UNV Tamsulosin HCl 0.4 mg QPM PO 02/10/25 18:00 UNV Sodium Chloride 10 ml Q8HR IV 02/10/25 14:00 UNV Acetaminophen/ Hydrocodone Bitart 1 tab Q4HP PRN PO 02/10/25 12:15 UNV Ondansetron HCl 4 mg Q4HP PRN IV 02/10/25 12:15 UNV Docusate Sodium 100 mg BIDPRN PRN PO 02/10/25 12:15 UNV Ascorbic Acid 500 mg BID PO 02/10/25 22:00 UNV Acetaminophen 650 mg Q6HP PRN PO 02/10/25 12:15 UNV Exam Vital Signs Vital Signs Date Time Temp Pulse Resp B/P (MAP) Pulse Ox O2 Delivery O2 Flow Rate FiO2 02/10/25 10:30 97.6 63 16 123/63 (83) 97 97.6 02/10/25 10:30 Nasal Cannula* 2 28 General Appearance: Alert, Oriented X3, Cooperative, No acute distress HEENT: Atraumatic, PERRLA, EOMI, Mucous membr. moist/pink Respiratory: Clear to auscultation, Normal air movement Cardiovascular: Regular rate, Normal S1, Normal S2, No murmurs Abdominal: Normal bowel sounds, Soft, No tenderness, No hepatospenomegaly, No masses Extremities: No clubbing, No cyanosis, No edema, Normal pulses, No tenderness/swelling Skin: No rashes, No breakdown, No significant lesion Neuro: Normal speech, Normal tone, Sensation intact, Cranial nerves 3-12 NL, Reflexes 2+, Other (Generalized weakness) Psych/Mental Status: Mental status NL, Mood NL Labs/Xrays Labs Test 02/10/25 11:30 02/10/25 10:27 Range/Units Troponin I High Sensitivity 3 L </=54 ng/L White Blood Count 5.6 4.4-10.8 10^3/uL Red Blood Count 5.04 4.5-5.90 10^6/uL Hemoglobin 15.5 13.5-17.5 g/dL Hematocrit 45.2 41.0-53.0 % Mean Corpuscular Volume 89.6 80.0-100.0 fL Mean Corpuscular Hemoglobin 30.6 28.0-32.0 pg Mean Corpuscular Hemoglobin Concent 34.2 32.0-36.0 g/dL Red Cell Distribution Width 13.3 11.8-14.3 % Platelet Count 153 140-450 10^3/uL Mean Platelet Volume 9.2 6.9-10.8 fL Neutrophils (%) (Auto) 77.1 37.0-80.0 % Lymphocytes (%) (Auto) 16.6 10.0-50.0 % Monocytes (%) (Auto) 5.3 0.0-12.0 % Eosinophils (%) (Auto) 0.6 0.0-7.0 % Basophils (%) (Auto) 0.4 0.0-2.0 % Neutrophils # (Auto) 4.3 1.6-8.6 10 ^3/uL Lymphocytes # (Auto) 0.9 0.4-5.4 10 ^3/uL Monocytes # (Auto) 0.3 0-1.3 10 ^3/uL Eosinophils # (Auto) 0 0-0.8 10 ^3/uL Basophils # (Auto) 0 0-0.2 10 ^3/uL Nucleated Red Blood Cells 0.1 % Sodium Level 142 136-145 mmol/L Potassium Level 3.9 3.5-5.1 mmol/L Chloride Level 108 H 98-107 mmol/L Carbon Dioxide Level 24 20-31 mmol/L Anion Gap 10 5-15 Blood Urea Nitrogen 16 9-23 mg/dL Creatinine 1.44 H 0.700-1.30 mg/dL Glomerular Filtration Rate Calc 52 >90 mL/min BUN/Creatinine Ratio 11.1 10.0-20.0 Serum Glucose 143 H 74-106 mg/dL Calcium Level 10.4 8.7-10.4 mg/dL Plasma/Serum Blood Alcohol < 3.0 <10 mg/dL PATIENT: VEDA FUENTES ACCT: [id number] UNIT: [id number] : 1950 LOC: ER ROOM / BED: / AGE / SEX: 74 / M ADM STATUS: REG ER SERVICE 1009 ORDERING PHYSICIAN: LUZ HERNANDEZ MD PROCEDURE(s): HWOCT - HEAD WITHOUT CONTRAST REASON: syncope ORDER NUMBER(s): [id number], ACCESSION NUMBER(s): [id number] EXAM: CT HEAD WITHOUT CONTRAST INDICATION: Syncope TECHNIQUE: CT of the head without intravenous contrast. Coronal and sagittal reformatted images are submitted. Radiation Dose: 1. Head: CT Dose: CTDI volume is 53.54 mGy. Dose-length product is 967.09 mGy*cm The dose indicators for CT are the volume Computed Tomography (CT) Dose Index (CTDIvol) and the Dose Length Product (DLP), and are measured in units of mGy and mGy-cm, respectively. These indicators are not patient dose, but values generated from the CT scanner acquisition factors. The report includes radiation exposure data for exposures received during this examination. All CT scans at this medical facility are performed using dose modulation techniques as appr opriate to a performed exam including the following: Automated exposure control was utilized; adjustment of the MA and/or KV according to patient size; and use of iterative reconstruction technique. COMPARISON: None FINDINGS: There is no evidence of acute intracranial hemorrhage, extra-axial collection, mass effect, midline shift, herniation or hydrocephalus. The ventricles, sulci and cisterns are age appropriate. The harkins-white differentiation is intact. The visualized paranasal sinuses and mastoid air cells are clear. No depressed calvarial fracture. The surrounding soft tissues are unremarkable. IMPRESSION: 1. No evidence of acute intracranial abnormality. SEPSIS Sepsis Screen Date sepsis recognized/suspect: Feb 10, 2025 Time Sepsis recognized/suspect: 1009 Recent Procedure: No On Antibiotic Therapy: No Respiratory Rate >20: No Heart Rate >90: No Temp<36 C (96.8 F) or >38.3 C: No SBP <90 or MAP <65 mmHG: No New Acute Mental Status Change: No Is the patient on CPAP, BIPAP,: No Physician Orders Urinalysis (02/10/25 10:09) Head Without Contrast (02/10/25 10:09) Concrete Gun Operator (02/10/25 10:09) Pulse Oximetry (02/10/25 10:09) Blood Pressure (02/10/25 10:09) Heplock Iv (02/10/25 10:09) Troponin-I Hs (02/10/25 13:09) Electrocardigram (02/10/25 11:09) Electrocardigram (02/10/25 13:09) Aspirin Tablet (02/11/25 10:00) Hydralazine Injection (Apresoline Inject (02/10/25 12:15) Fluoxetine Capsule (Prozac Capsule) (02/11/25 10:00) Tamsulosin Hydrochloride (Flomax) (02/10/25 18:00) Allergies (02/10/25 12:01) Code Status (02/10/25 12:01) Sodium Chloride Lock (Saline Lock Ns) (02/10/25 14:00) Oxygen Per Hour (02/10/25 12:01) Hydrocodone-Acet 5/325mg Tab ([place] 5/32 (02/10/25 12:15) Ondansetron Hcl (Zofran) (02/10/25 12:15) Docusate Sodium Capsule (Colace Capsule) (02/10/25 12:15) Ascorbic Acid Tablet (Vitamin C Tablet) (02/10/25 22:00) Fall Risk Precautions In Place QSHIFT (02/10/25 12:01) Complete Blood Count (02/11/25 04:00) Comprehensive Metabolic Panel (02/11/25 04:00) Cardiac Diet-2gna,Lofat,Lochol (02/10/25 Lunch) Condition: Serious (02/10/25 12:01) Acetaminophen Tablet (Tylenol Tablet) (02/10/25 12:15) Maintain Bed Rest (02/10/25 12:01) Sequential Compression Device (02/10/25 ) Admit (02/10/25 12:24) Nitroglycerin Sublingual (Ntrostat Subli (02/10/25 12:30) Morphine Sulfate Injection (02/10/25 12:30) Stat Ekg For Chest Pain (02/10/25 12:24) Notify Md Of Changes From Base (02/10/25 12:24) Liability Analyst For 24 Hours (02/10/25 12:24) Emergency Dysrhythmia Protocol (02/10/25 12:24) Rhythm Strips Once Every Shift (02/10/25 12:24) Oxygen By Nasal Cannula (02/10/25 12:24) Vital Signs Date Time Temp Pulse Resp B/P (MAP) Pulse Ox O2 Delivery O2 Flow Rate FiO2 02/10/25 10:30 97.6 63 16 123/63 (83) 97 97.6 02/10/25 10:30 Nasal Cannula* 2 28 02/10/25 10:21 65 02/10/25 10:18 65 02/10/25 10:17 97.8 65 14 116/70 (85) 94 97.8 Laboratory Tests Test 02/10/25 10:27 White Blood Count 5.6 10^3/uL (4.4-10.8) Medications Medications Dose Ordered Sig/Pedro Route Start Time Stop Time Status Last Admin Dose Admin Sodium Chloride 500 ml @ 500 mls/hr Q1H ONCE IVB 02/10/25 10:15 02/10/25 11:14 DC 02/10/25 10:38 500 MLS/HR Assessment/Plan Assessment/Plan New onset seizure Dehydration Autonomic dysfunction Generalized weakness Plan 1. Admit to telemetry unit 2. Breathing treatment 3. Pain control management 4. Management of fluids and electrolytes 5. Consultation for Neurology 6. Diagnostic tests head CT 7. DVT prophylaxis-on SCDs 8. Repeat labs CBC, CMP in a.m. 9. Continue with current medical management 10. Treatment plan discussed with patient and RN. Patient verbalized understanding. Plan discussed with: Patient, Other (RN) My Orders Orders - JAZMINE WALKER DNP Procedure Category Date Status Time Aspirin Tablet PHA 02/11/25 Logged 10:00 Hydralazine Injection PHA 02/10/25 Logged (Apresoline Inject 12:15 Fluoxetine Capsule PHA 02/11/25 Logged (Prozac Capsule) 10:00 Tamsulosin PHA 02/10/25 Logged Hydrochloride (Flomax) 18:00 Allergies KATHY 02/10/25 In Process 12:01 Code Status CODE 02/10/25 Transmitted 12:01 Sodium Chloride Lock PHA 02/10/25 Logged (Saline Lock Ns) 14:00 Oxygen Per Hour RT 02/10/25 Transmitted 12:01 Hydrocodone-Acet PHA 02/10/25 Logged 5/325mg Tab ([place] 12:15 Ondansetron Hcl PHA 02/10/25 Logged (Zofran) 12:15 Docusate Sodium PHA 02/10/25 Logged Capsule (Colace 12:[address] [facility] 02/10/25 Logged (Vitamin C Tablet) 22:00 Fall Risk Precautions [facility] 02/10/[address] 12:01 Complete Blood Count LAB 02/11/25 Verified 04:00 Comprehensive LAB 02/11/25 Verified Metabolic Panel 04:00 Cardiac DIET 02/10/25 Transmitted Diet-2gna,Lofat,Lochol Lunch Condition: Serious [facility] 02/10/25 In Process 12:[address] [facility] 02/10/25 Logged (Tylenol Tablet) 12:15 Maintain Bed Rest [facility] 02/10/25 In Process 12:01 Sequential [facility] 02/10/25 In Process Compression Device Admit ADMIT 02/10/25 Transmitted 12:[address] [facility] 02/10/25 Transmitted Sublingual (Ntrostat 12:[address] [facility] 02/10/25 Transmitted Injection 12:30 Stat Ekg For Chest [facility] 02/10/25 Transmitted Pain 12:24 Notify Md Of Changes [facility] 02/10/25 Transmitted From Base 12:24 Liability Analyst For [facility] 02/10/25 Transmitted 24 Hours 12:24 Emergency Dysrhythmia [facility] 02/10/25 Transmitted Protocol 12:24 Rhythm Strips Once [facility] 02/10/25 Transmitted Every Shift 12:24 Oxygen By Nasal 02/10/25 Transmitted Cannula 12:24 Problem List: (1) New onset seizure (2) Dehydration (3) Autonomic dysfunction (4) Generalized weakness Date of Service: Feb 10, 2025 Billing Provider: JAZMINE WALKER DNP Common Visit Codes: [id number] INP/OBS CARE (HIGH) JAZMINE WALKER DNP Feb 10, 2025 12:25
[2025-02-10] MEDS ORDERED: MORPHINE SULFATE INJ 2 MG/ml SYRG IV PRN (12:30)
[2025-02-10] MEDS ORDERED: NITROGLYCERIN 0.4 MG SL TAB SL PRN (12:30)
[2025-02-10 12:50] LABS: Urine Protein, UAD Negative (Negative)
[2025-02-10] MEDS: SODIUM CHLOR 0.9% PF (SALINE LOCK) 10ML VIAL/SYR IV SCH (14:20)
[2025-02-10] MEDS: TAMSULOSIN HYDROCHLORIDE 0.4 MG CAP PO SCH (18:06)
[2025-02-10 21:40] VITALS: BP 126/67; PULSE 79; RESP 22; TEMP 99.9; O2SAT 96
[2025-02-10] MEDS: ACETAMINOPHEN 325 MG TAB PO PRN (22:07)
[2025-02-10] MEDS: ASCORBIC ACID 500 MG TAB PO SCH (22:07)
[2025-02-10] MEDS ORDERED: INDO-34 PO (22:19)
[2025-02-10] MEDS ORDERED: ROSU20TA56 PO (22:19)
[2025-02-10] MEDS ORDERED: AMLO1TAB22 PO (22:19)
[2025-02-11] VITALS (8 sets, daily range): BP systolic 93–120; BP diastolic 48–67; PULSE 60–85; RESP 17–22; TEMP 97.9–99.5; O2SAT 92–96
[2025-02-11 06:52] LABS: Hematocrit 40.9 % (41.0-53.0); Hemoglobin 13.8 g/dL (13.5-17.5); Mean Corpuscular Hemoglobin 30.4 pg (28.0-32.0); Mean Corpuscular Volume 89.6 fL (80.0-100.0); Nucleated Red Blood Cells % 0.1 %
[2025-02-11 07:10] LABS: Alanine Aminotransferase 13 U/L (7-40); Albumin 4.1 g/dL (3.2-4.8); Alkaline Phosphatase 50 U/L (46-116); Anion Gap 9 (5-15); BUN/Creatinine Ratio 14.8 (10.0-20.0); Bilirubin, Total 1.1 mg/dL (0.2-1.0); Blood Urea Nitrogen 17 mg/dL (9-23); Calcium 9.9 mg/dL (8.7-10.4); Carbon Dioxide 25 mmol/L (20-31); Chloride 106 mmol/L (98-107); Glucose 97 mg/dL (74-106); Potassium 3.7 mmol/L (3.5-5.1); Sodium 140 mmol/L (136-145); Total Protein 6.5 g/dL (5.7-8.2)
--- NOTE | 2025-02-11 12:11 | DVHPN2 ---
Reviewed: Care Plan, H&P, Labs, Medications, Previous Orders, Radiology Changes from previous H/P or p: No Changes Eyes: No Pain, No Vision change, No Conjunctivae inflammation, No Eyelid inflammation, No Other, No Redness ENT: No Ear pain, No Ear discharge, No Nose pain, No Nose discharge, No Nose congestion, No Mouth pain, No Mouth swelling, No Throat pain, No Throat swelling, No Other Cardiovascular: No Chest Pain, No Palpitations, No Orthopnea, No Paroxysmal Noc. Dyspnea, No Edema, No Lt Headedness, No Other Respiratory: No Cough, No Dry, No Shortness of breath, No SOB with excertion, No Wheezing, No Hemoptysis, No Pleuritic Pain, No Sputum, No Other Gastrointestinal: No Nausea, No Vomiting, No Abdominal Pain, No Diarrhea, No Constipation, No Melena, No Hematochezia, No Other Genitourinary: No Dysuria, No Frequency, No Incontinence, No Hematuria, No Retention, No Other Musculoskeletal: No other, No neck pain, No shoulder pain, No arm pain, No back pain, No hand pain, No leg pain, No foot pain Skin: No Rash, No Lesions, No Jaundice, No Bruising, No Other Objective Vitals Vital Signs Date Time Temp Pulse Resp B/P (MAP) Pulse Ox O2 Delivery O2 Flow Rate FiO2 02/11/25 09:00 99.5 63 17 109/67 (81) 96 99.5 02/11/25 08:30 Room Air* 0 21 Intake/Output Intake and Output 02/11/25 07:00 Intake Total 710 ml Balance 710 ml Intake Oral 210 ml IV Total 500 ml # Voids 1 Medications Current Medications Medications Dose Ordered Sig/Pedro Route Start Time Stop Time Status Last Admin Dose Admin Aspirin 81 mg DAILY PO 02/11/25 10:00 02/11/25 10:06 81 MG Hydralazine HCl 10 mg Q6HP PRN IV 02/10/25 12:15 Fluoxetine HCl 20 mg DAILY PO 02/11/25 10:00 02/11/25 10:06 20 MG Tamsulosin HCl 0.4 mg QPM PO 02/10/25 18:00 02/10/25 18:06 0.4 MG Sodium Chloride 10 ml Q8HR IV 02/10/25 14:00 02/11/25 06:35 10 ML Acetaminophen/ Hydrocodone Bitart 1 tab Q4HP PRN PO 02/10/25 12:15 Ondansetron HCl 4 mg Q4HP PRN IV 02/10/25 12:15 Docusate Sodium 100 mg BIDPRN PRN PO 02/10/25 12:15 Ascorbic Acid 500 mg BID PO 02/10/25 22:00 02/11/25 10:06 500 MG Acetaminophen 650 mg Q6HP PRN PO 02/10/25 12:15 02/10/25 22:07 650 MG Nitroglycerin 0.4 mg Q5MINP PRN SL 02/10/25 12:30 Morphine Sulfate 2 mg Q30M PRN IV 02/10/25 12:30 Laboratory Results Laboratory Tests 02/11/25 06:22 Chemistry Test 02/11/25 06:22 Albumin 4.1 g/dL (3.2-4.8) Calcium Level 9.9 mg/dL (8.7-10.4) Total Protein 6.5 g/dL (5.7-8.2) LFT Test 02/11/25 06:22 Alanine Aminotransferase (ALT) 13 U/L (7-40) Alkaline Phosphatase 50 U/L (46-116) Aspartate Amino Transferase (AST) 25 U/L (13-40) Total Bilirubin 1.1 mg/dL (0.2-1.0) H Urinalysis Test 02/10/25 11:37 Urine Color Yellow (Yellow) Urine Clarity Clear (Clear) Urine pH 5.0 (5.0-9.0) Urine Specific [place] 1.024 (1.001-1.035) Urine Protein Negative (Negative) Urine Ketones 1+ (Negative) H Urine Blood Negative /uL (Negative) Urine Nitrite Negative (Negative) Urine Bilirubin Negative (Negative) Urine Urobilinogen Normal mg/dL (Negative) Urine Leukocyte Esterase Negative /uL (Negative) Urine RBC 1 /hpf (0 - 3) Urine Microscopic WBC 1 /HPF (0-3) Urine Squamous Epithelial Cells Few /hpf (<5) Urine Bacteria None seen /hpf (None Seen) Urine Hyaline Casts Few /lpf (0 - 2) Urine Mucus Few (None Seen) Urine Glucose Normal mg/dL (Normal) Labs and/or images reviewed: Labs reviewed by me, Image(s) reviewed by me Assessment/Plan Assessment/Plan New onset seizure: Ativan p.r.n., CT head negative, Neurology consult for Dr. Anne history of prostate cancer Hypertension Depression Time spent 46 minutes Plan discussed with: Patient My Orders Orders - PHANI MICHEL MD Procedure Category Date Status Time Creatine Kinase LAB 02/11/25 Logged 12:06 * Neurology Consult CONS 02/11/25 Verified 12:06 Date of Service: Feb 11, 2025 Billing Provider: PHANI MICHEL MD Common Visit Codes: [id number] INP/OBS CARE(HIGH) PHANI MICHEL MD Feb 11, 2025 12:11
[2025-02-11] MEDS ORDERED: LORazepam 2MG/ML-1ML VIAL IV PRN (12:15)
[2025-02-11] MEDS: SODIUM CHLORIDE 0.9% 1,000 ML IV SCH (15:20)
--- NOTE | 2025-02-11 17:48 | DVH ---
PROCEDURE: MRI BRAIN HEAD WO CONTRAST INDICATION: NEW ONSET OF SEIZURE EXAM DATE: 02/11/2025 04:44 PM COMPARISON: None TECHNIQUE: MRI of the brain without intravenous contrast. FINDINGS: Diffusion weighted images of the brain demonstrate no evidence of acute infarction. There is no evidence of acute intracranial hemorrhage, extra-axial collection, mass effect, midline s hift, herniation or hydrocephalus. The ventricles, sulci and cisterns appear age appropriate. Mild changes of chronic microvascular ischemic disease. The major vascular flow voids are present. The visualized paranasal sinuses and mastoid air cells are clear. The surrounding soft tissues and o sseous structures are unremarkable. IMPRESSION: 1. No evidence of acute infarction, intracranial hemorrhage, mass effect or hydrocephalus. Mild pearson es of chronic microvascular ischemic disease. HS:Y
--- NOTE | 2025-02-11 21:04 | DVHINCON2 ---
Date of service: Feb 11, [address] Begum Reason for Consultation New onset seizure, history of prostate cancer History of Present Illness Mr. Johns is a 74 years old right-handed gentleman with a history of hypertension, prostate cancer, he was admitted to the [facility] on 02/10/2025 with a chief company of syncopal event. At this time, he is alert and fully oriented, he provided for history On 02/10/25, he started working in the [employer] with his grandson since 7:00 a.m., and he kept drinking water, around 9:00 a.m., he developed intense dizziness/lightheadedness, along with hot flash feeling, significantly increased sweating, nausea, blurry vision, and he woke up on the floor, consciousness everything, and was able to maintain a good compression, his family reported he passed out for 45 seconds, with shaking all over body. He has never had similar problem before, he has no history of seizure disorder, stroke, or brain injury Once every 3-4 weeks' time, he has a supra intense pain in the left frontal head region lasting for about 35 seconds Urinalysis, 02/10/2025: Unremarkable Plasma alcohol, 02/10/2025: <3 CBC, 02/11/2025: Unremarkable CMP, 02/11/2025: Unremarkable MRI head, 02/11/2025:No evidence of acute infarction, intracranial hemorrhage, mass effect or hydrocephalus. Mild changes of chronic microvascular ischemic disease. Past Medical History Hypertension, prostate cancer Past Surgical History Cholecystectomy, tonsillectomy, C-spine surgery, lumbar spine surgery Family History: Patient reports no known family medical history. Family History Hypertension Social History He used to be a tobacco smoke, but no history of drug or alcohol abuse Allergies: Coded Allergies: No Known Drug Allergy (Verified Allergy, Unknown, 06/01/22) Home Meds Reported Medications Amlodipine Besylate (Amlodipine Besylate) 5 Mg Tab, 1 TAB PO DAILY, #30 TAB 5 Refills 02/10/25 Indomethacin (Indocin) 25 Mg Cp, 1 CAP PO BID, #28 CAP 02/10/25 Rosuvastatin Calcium (Rosuvastatin Calcium) 20 Mg Tab, 20 MG PO, TAB 02/10/25 Lisinopril (Lisinopril) 5 Mg Tab, 1 TAB PO QPM for HYPERTENSION 06/01/22 Aspirin (Aspirin) 81 Mg Tab, 1 TAB PO QPM for HEART ATTACK PREVENTION 06/01/22 Fluoxetine HCl (Pmdd) (Fluoxetine HCl) 20 Mg Tab, 20 MG PO QAM for DEPRESSION 06/01/22 Current Medications Current Medications Medications (Trade) Dose Ordered Sig/Pedro Route PRN Reason Start Time Stop Time Status Last Admin Aspirin 81 mg DAILY PO 02/11/25 10:00 02/11/25 10:06 Fluoxetine HCl (PROzac CAPSULE) 20 mg DAILY PO 02/11/25 10:00 02/11/25 10:06 Ascorbic Acid (Vitamin C Tablet) 500 mg BID PO 02/10/25 22:00 02/11/25 10:06 Lorazepam (Ativan Inj) 1 mg Q5MINP PRN IV SEIZURES 02/11/25 12:15 Sodium Chloride 1,000 ml @ 150 mls/hr Q6H40M IV 02/11/25 13:30 02/11/25 15:20 Review of Systems As above, the other systems are negative Vital Signs Vital Signs Date Time Temp Pulse Resp B/P (MAP) Pulse Ox O2 Delivery O2 Flow Rate FiO2 02/11/25 20:00 Room Air* 0 21 02/11/25 13:00 98.3 60 17 109/64 (79) 96 98.3 Physical Exam GENERAL EXAM: General: the patient is well developed and nourished. No acute distress. HEENT: Normocephalic, neck is supple, no carotid bruits. No mass RESPIRATORY: Normal respiratory effort with symmetrical lung expansion. Lungs clear to auscultation. CARDIOVASCULAR: Regular rate and rhythm with no murmurs. S1, S2. ABDOMEN: Soft, nontender, normal bowel sound NEUROLOGICAL: MENTAL STATUS: Awake and alert. Oriented to person, place, time and general circumstances. Able to give personal history SPEECH, LANGUAGE, HIGHER CORTICAL FUNCTION: no aphasia or dysathria. CRANIAL NERVES: #2: Intact visual see to confrontation. The optic discs were sharp. Retinal background was uniformly pink in appearance. There was no hemorrhages or exudates. #3,4,6: Pupils are equal, round and reactive. EOMs full and conjugate. Mild bilateral gaze evoked nystagmus. #5: Facial sensation intact in all three divisions bilaterally. Mandibular strength intact. #7: Facial muscles symmetrical and strength intact. #8: Hearing grossly normal to voice. #9,10: Uvula and soft palate rise in the midline. Swallow and voice are normal. #11: Trapezius and sternomastoid strength intact bilaterally. #12: Tongue midline. No fasciculations or atrophy. SENSATION: Sensation to touch and pinprick is normal. MOTOR: Normal tone in the upper and lower extremity. Normal muscle bulk. No fasciculations. No abnormal movements or posturing. Muscle strength of the major groups in the upper extremities is 5/5. Muscle strength of the major groups in the lower extremities is 5/5. REFLEXES: Deep tendon reflexes normal and symmetrical. No pathological reflexes. CEREBELLAR/COORDINATION: Finger to nose and heel to guillen are normal bilaterally. GAIT/STATION: deferred. Labs/Diagnostic Data Labs Test 02/11/25 14:27 02/11/25 06:22 02/10/25 11:37 02/10/25 11:30 Range/Units Creatine Kinase 106 46-171 U/L White Blood Count 7.3 # 4.4-10.8 10^3/uL Red Blood Count 4.56 4.5-5.90 10^6/uL Hemoglobin 13.8 13.5-17.5 g/dL Hematocrit 40.9 L 41.0-53.0 % Mean Corpuscular Volume 89.6 80.0-100.0 fL Mean Corpuscular Hemoglobin 30.4 28.0-32.0 pg Mean Corpuscular Hemoglobin Concent 33.9 32.0-36.0 g/dL Red Cell Distribution Width 13.2 11.8-14.3 % Platelet Count 137 L 140-450 10^3/uL Mean Platelet Volume 8.9 6.9-10.8 fL Neutrophils (%) (Auto) 71.6 37.0-80.0 % Lymphocytes (%) (Auto) 19.0 10.0-50.0 % Monocytes (%) (Auto) 8.3 0.0-12.0 % Eosinophils (%) (Auto) 0.9 0.0-7.0 % Basophils (%) (Auto) 0.2 0.0-2.0 % Neutrophils # (Auto) 5.2 1.6-8.6 10 ^3/uL Lymphocytes # (Auto) 1.4 0.4-5.4 10 ^3/uL Monocytes # (Auto) 0.6 0-1.3 10 ^3/uL Eosinophils # (Auto) 0.1 0-0.8 10 ^3/uL Basophils # (Auto) 0 0-0.2 10 ^3/uL Nucleated Red Blood Cells 0.1 % Sodium Level 140 136-145 mmol/L Potassium Level 3.7 3.5-5.1 mmol/L Chloride Level 106 98-107 mmol/L Carbon Dioxide Level 25 20-31 mmol/L Anion Gap 9 5-15 Blood Urea Nitrogen 17 9-23 mg/dL Creatinine 1.15 0.700-1.30 mg/dL Glomerular Filtration Rate Calc 68 >90 mL/min BUN/Creatinine Ratio 14.8 10.0-20.0 Serum Glucose 97 74-106 mg/dL Calcium Level 9.9 8.7-10.4 mg/dL Total Bilirubin 1.1 H 0.2-1.0 mg/dL Aspartate Amino Transferase (AST) 25 13-40 U/L Alanine Aminotransferase (ALT) 13 7-40 U/L Alkaline Phosphatase 50 46-116 U/L Total Protein 6.5 5.7-8.2 g/dL Albumin 4.1 3.2-4.8 g/dL Urine Color Yellow Yellow Urine Clarity Clear Clear Urine pH 5.0 5.0-9.0 Urine Specific [place] 1.024 1.001-1.035 Urine Protein Negative Negative Urine Ketones 1+ H Negative Urine Blood Negative Negative /uL Urine Nitrite Negative Negative Urine Bilirubin Negative Negative Urine Urobilinogen Normal Negative mg/dL Urine Leukocyte Esterase Negative Negative /uL Urine RBC 1 0 - 3 /hpf Urine Microscopic WBC 1 0-3 /HPF Urine Squamous Epithelial Cells Few <5 /hpf Urine Bacteria None seen None Seen /hpf Urine Hyaline Casts Few 0 - 2 /lpf Urine Mucus Few None Seen Urine Glucose Normal Normal mg/dL Troponin I High Sensitivity 3 L </=54 ng/L Test 02/10/25 10:27 Range/Units Plasma/Serum Blood Alcohol < 3.0 <10 mg/dL Assessment Passing out Likely had a convulsive syncope Rule out grand mal seizure, less likely Ice pick headache with infrequent attacks Plan/Recommendation Monitoring Supportive treatment Telemetry EEG Syncopal precautions discussed No medical treatment for the ice speak headache at this time More recommendation per clinical course This medical document was created using an electronic medical record system with Dragon computerized dictation system. Although this document has been carefully reviewed, there may still be some phonetic and typographical errors. These areas are purely typographical due to imperfections of the software programs, and do not reflect any compromise in the patient's medical care. Plan discussed with: Patient, Other DELORIS WHITMORE MD Feb 11, 2025 21:04
[2025-02-12] VITALS (9 sets, daily range): BP systolic 117–143; BP diastolic 71–85; PULSE 52–67; RESP 15–18; TEMP 97.1–98.1; O2SAT 95–97
--- NOTE | 2025-02-12 10:20 | DVHPN2 ---
Progress Note - Dictate Date Seen: Feb 12, 2025 Medical Necessity Reason Pt with a Central, PICC or Fol: No Subjective Mr. Johns is a 74 years old right-handed gentleman with a history of hypertension, prostate cancer, he was admitted to the [facility] on 02/10/2025 with a chief company of syncopal event. I have seen and examined the patient, talked to his nurse, he is doing fine, no dizziness when he walks on the floor, no new company Urinalysis, 02/10/2025: Unremarkable Plasma alcohol, 02/10/2025: <3 CBC, 02/11/2025: Unremarkable CMP, 02/11/2025: Unremarkable MRI head, 02/11/2025:No evidence of acute infarction, intracranial hemorrhage, mass effect or hydrocephalus. Mild changes of chronic microvascular ischemic disease vital signs Vital Sign Date Time Temp Pulse Resp B/P (MAP) Pulse Ox O2 Delivery O2 Flow Rate FiO2 02/12/25 07:39 16 96 Room Air* 0 21 02/12/25 05:00 97.8 59 143/85 (104) 97.8 Total Intake and Output 02/11/25 02/11/25 02/12/25 15:00 23:00 07:00 Intake Total 740 ml 1080 ml 1380 ml Balance 740 ml 1080 ml 1380 ml medications Current Medications Medications Dose Ordered Sig/Pedro Route Start Time Stop Time Status Last Admin Dose Admin Aspirin 81 mg DAILY PO 02/11/25 10:00 02/11/25 10:06 81 MG Hydralazine HCl 10 mg Q6HP PRN IV 02/10/25 12:15 Fluoxetine HCl 20 mg DAILY PO 02/11/25 10:00 02/11/25 10:06 20 MG Tamsulosin HCl 0.4 mg QPM PO 02/10/25 18:00 02/11/25 18:09 0.4 MG Sodium Chloride 10 ml Q8HR IV 02/10/25 14:00 02/12/25 06:56 10 ML Acetaminophen/ Hydrocodone Bitart 1 tab Q4HP PRN PO 02/10/25 12:15 Ondansetron HCl 4 mg Q4HP PRN IV 02/10/25 12:15 Docusate Sodium 100 mg BIDPRN PRN PO 02/10/25 12:15 Ascorbic Acid 500 mg BID PO 02/10/25 22:00 02/11/25 21:04 500 MG Acetaminophen 650 mg Q6HP PRN PO 02/10/25 12:15 02/10/25 22:07 650 MG Nitroglycerin 0.4 mg Q5MINP PRN SL 02/10/25 12:30 Morphine Sulfate 2 mg Q30M PRN IV 02/10/25 12:30 Lorazepam 1 mg Q5MINP PRN IV 02/11/25 12:15 Sodium Chloride 1,000 ml @ 150 mls/hr Q6H40M IV 02/11/25 13:30 02/12/25 06:58 150 MLS/HR objective General: the patient is well developed and nourished. No acute distress. MENTAL STATUS: Subjective SPEECH, LANGUAGE, HIGHER CORTICAL FUNCTION: no aphasia or dysathria. CRANIAL NERVES: Pupils are equal, round and reactive. EOMs full and conjugate. Mild bilateral gaze evoked nystagmus. Facial sensation intact in all three divisions bilaterally. Mandibular strength intact. Facial muscles symmetrical and strength intact. SENSATION: Sensation to touch and pinprick is normal. MOTOR: Normal tone in the upper and lower extremity. Normal muscle bulk. No fasciculations. No abnormal movements or posturing. Muscle strength of the major groups in the extremities is 5/5. REFLEXES: Deep tendon reflexes normal and symmetrical. No pathological reflexes. CEREBELLAR/COORDINATION: Finger to nose and heel to guillen are normal bilaterally. GAIT/STATION: deferred laboratory and microbiology Laboratory Tests 02/11/25 06:22 Test 02/11/25 06:22 Range/Units Serum Glucose 97 74-106 mg/dL Problem List Passing out Likely had a convulsive syncope Rule out grand mal seizure, less likely Ice pick headache with infrequent attacks Assessment/Plan Monitoring Supportive treatment Telemetry EEG Syncopal precautions discussed No medical treatment for the ice speak headache at this time Okay to discharge home after EEG from neurologic point of view More recommendation per clinical course This medical document was created using an electronic medical record system with Heyday dictation system. Although this document has been carefully reviewed, there may still be some phonetic and typographical errors. These areas are purely typographical due to imperfections of the software programs, and do not reflect any compromise in the patient's medical care Prognosis poor Plan discussed with: Patient, Other DELORIS WHITMORE MD Feb 12, 2025 10:20
--- NOTE | 2025-02-12 10:25 | DVHPN2 ---
Reviewed: Care Plan, H&P, Labs, Medications, Previous Orders, Radiology Changes from previous H/P or p: No Changes Eyes: No Pain, No Vision change, No Conjunctivae inflammation, No Eyelid inflammation, No Other, No Redness ENT: No Ear pain, No Ear discharge, No Nose pain, No Nose discharge, No Nose congestion, No Mouth pain, No Mouth swelling, No Throat pain, No Throat swelling, No Other Cardiovascular: No Chest Pain, No Palpitations, No Orthopnea, No Paroxysmal Noc. Dyspnea, No Edema, No Lt Headedness, No Other Respiratory: No Cough, No Dry, No Shortness of breath, No SOB with excertion, No Wheezing, No Hemoptysis, No Pleuritic Pain, No Sputum, No Other Gastrointestinal: No Nausea, No Vomiting, No Abdominal Pain, No Diarrhea, No Constipation, No Melena, No Hematochezia, No Other Genitourinary: No Dysuria, No Frequency, No Incontinence, No Hematuria, No Retention, No Other Musculoskeletal: No other, No neck pain, No shoulder pain, No arm pain, No back pain, No hand pain, No leg pain, No foot pain Skin: No Rash, No Lesions, No Jaundice, No Bruising, No Other Objective Vitals Vital Signs Date Time Temp Pulse Resp B/P (MAP) Pulse Ox O2 Delivery O2 Flow Rate FiO2 02/12/25 07:39 16 96 Room Air* 0 21 02/12/25 05:00 97.8 59 143/85 (104) 97.8 Intake/Output Intake and Output 02/12/25 07:00 Intake Total 3200 ml Balance 3200 ml Intake Oral 2200 ml IV Total 1000 ml # Voids 4 Medications Current Medications Medications Dose Ordered Sig/Pedro Route Start Time Stop Time Status Last Admin Dose Admin Aspirin 81 mg DAILY PO 02/11/25 10:00 02/11/25 10:06 81 MG Hydralazine HCl 10 mg Q6HP PRN IV 02/10/25 12:15 Fluoxetine HCl 20 mg DAILY PO 02/11/25 10:00 02/11/25 10:06 20 MG Tamsulosin HCl 0.4 mg QPM PO 02/10/25 18:00 02/11/25 18:09 0.4 MG Sodium Chloride 10 ml Q8HR IV 02/10/25 14:00 02/12/25 06:56 10 ML Acetaminophen/ Hydrocodone Bitart 1 tab Q4HP PRN PO 02/10/25 12:15 Ondansetron HCl 4 mg Q4HP PRN IV 02/10/25 12:15 Docusate Sodium 100 mg BIDPRN PRN PO 02/10/25 12:15 Ascorbic Acid 500 mg BID PO 02/10/25 22:00 02/11/25 21:04 500 MG Acetaminophen 650 mg Q6HP PRN PO 02/10/25 12:15 02/10/25 22:07 650 MG Nitroglycerin 0.4 mg Q5MINP PRN SL 02/10/25 12:30 Morphine Sulfate 2 mg Q30M PRN IV 02/10/25 12:30 Lorazepam 1 mg Q5MINP PRN IV 02/11/25 12:15 Sodium Chloride 1,000 ml @ 150 mls/hr Q6H40M IV 02/11/25 13:30 02/12/25 06:58 150 MLS/HR Laboratory Results Laboratory Tests 02/11/25 06:22 Urinalysis Test 02/10/25 11:37 Urine Color Yellow (Yellow) Urine Clarity Clear (Clear) Urine pH 5.0 (5.0-9.0) Urine Specific [place] 1.024 (1.001-1.035) Urine Protein Negative (Negative) Urine Ketones 1+ (Negative) H Urine Blood Negative /uL (Negative) Urine Nitrite Negative (Negative) Urine Bilirubin Negative (Negative) Urine Urobilinogen Normal mg/dL (Negative) Urine Leukocyte Esterase Negative /uL (Negative) Urine RBC 1 /hpf (0 - 3) Urine Microscopic WBC 1 /HPF (0-3) Urine Squamous Epithelial Cells Few /hpf (<5) Urine Bacteria None seen /hpf (None Seen) Urine Hyaline Casts Few /lpf (0 - 2) Urine Mucus Few (None Seen) Urine Glucose Normal mg/dL (Normal) Labs and/or images reviewed: Labs reviewed by me, Image(s) reviewed by me Assessment/Plan Assessment/Plan New onset seizure: Ativan p.r.n., CT head negative, brain negative, EEG pending Neurology consult for Dr. Anne appreciated, no seizure medication for the 1st time seizures Rhabdomyolysis ruled out by normal CPK history of prostate cancer Hypertension Depression Time spent 46 minutes Plan discussed with: Patient My Orders Orders - PHANI MICHEL MD Procedure Category Date Status Time * Neurology Consult CONS 02/11/25 Transmitted 12:06 Lorazepam 2mg/Ml Inj PHA 02/11/25 In Process (Ativan Inj) 12:15 Sodium Chloride 0.9% PHA 02/11/25 In Process 13:30 Brain Head Wo Contrast MRI 02/11/25 Resulted 13:18 Date of Service: Feb 12, 2025 Billing Provider: PHANI MICHEL MD Common Visit Codes: [id number] INP/OBS CARE(HIGH) PHANI MICHEL MD Feb 12, 2025 10:25
[2025-02-13 04:44] VITALS: BP 126/72; PULSE 65; RESP 17; TEMP 97.8; O2SAT 93
[2025-02-13 09:00] VITALS: BP 159/85; PULSE 65; RESP 16; TEMP 96.6; O2SAT 92
--- NOTE | 2025-02-13 10:26 | DVHDS2 ---
Discharge Summary Date of Admission Feb 10, 2025 at 12:24 Date of Discharge: Feb 13, 2025 Admitting Diagnosis Seizures Wounds: None Labs/Diagnostic Data: Laboratory Results Test 02/11/25 14:27 02/11/25 06:22 02/10/25 11:37 02/10/25 11:30 Creatine Kinase 106 U/L (46-171) White Blood Count 7.3 10^3/uL (4.4-10.8) Red Blood Count 4.56 10^6/uL (4.5-5.90) Hemoglobin 13.8 g/dL (13.5-17.5) Hematocrit 40.9 % (41.0-53.0) Mean Corpuscular Volume 89.6 fL (80.0-100.0) Mean Corpuscular Hemoglobin 30.4 pg (28.0-32.0) Mean Corpuscular Hemoglobin Concent 33.9 g/dL (32.0-36.0) Red Cell Distribution Width 13.2 % (11.8-14.3) Platelet Count 137 10^3/uL (140-450) Mean Platelet Volume 8.9 fL (6.9-10.8) Neutrophils (%) (Auto) 71.6 % (37.0-80.0) Lymphocytes (%) (Auto) 19.0 % (10.0-50.0) Monocytes (%) (Auto) 8.3 % (0.0-12.0) Eosinophils (%) (Auto) 0.9 % (0.0-7.0) Basophils (%) (Auto) 0.2 % (0.0-2.0) Neutrophils # (Auto) 5.2 10 ^3/uL (1.6-8.6) Lymphocytes # (Auto) 1.4 10 ^3/uL (0.4-5.4) Monocytes # (Auto) 0.6 10 ^3/uL (0-1.3) Eosinophils # (Auto) 0.1 10 ^3/uL (0-0.8) Basophils # (Auto) 0 10 ^3/uL (0-0.2) Nucleated Red Blood Cells 0.1 % Sodium Level 140 mmol/L (136-145) Potassium Level 3.7 mmol/L (3.5-5.1) Chloride Level 106 mmol/L (98-107) Carbon Dioxide Level 25 mmol/L (20-31) Anion Gap 9 (5-15) Blood Urea Nitrogen 17 mg/dL (9-23) Creatinine 1.15 mg/dL (0.700-1.30) Glomerular Filtration Rate Calc 68 mL/min (>90) BUN/Creatinine Ratio 14.8 (10.0-20.0) Serum Glucose 97 mg/dL (74-106) Calcium Level 9.9 mg/dL (8.7-10.4) Total Bilirubin 1.1 mg/dL (0.2-1.0) Aspartate Amino Transferase (AST) 25 U/L (13-40) Alanine Aminotransferase (ALT) 13 U/L (7-40) Alkaline Phosphatase 50 U/L (46-116) Total Protein 6.5 g/dL (5.7-8.2) Albumin 4.1 g/dL (3.2-4.8) Urine Color Yellow (Yellow) Urine Clarity Clear (Clear) Urine pH 5.0 (5.0-9.0) Urine Specific [place] 1.024 (1.001-1.035) Urine Protein Negative (Negative) Urine Ketones 1+ (Negative) Urine Blood Negative /uL (Negative) Urine Nitrite Negative (Negative) Urine Bilirubin Negative (Negative) Urine Urobilinogen Normal mg/dL (Negative) Urine Leukocyte Esterase Negative /uL (Negative) Urine RBC 1 /hpf (0 - 3) Urine Microscopic WBC 1 /HPF (0-3) Urine Squamous Epithelial Cells Few /hpf (<5) Urine Bacteria None seen /hpf (None Seen) Urine Hyaline Casts Few /lpf (0 - 2) Urine Mucus Few (None Seen) Urine Glucose Normal mg/dL (Normal) Troponin I High Sensitivity 3 ng/L (</=54) Test 02/10/25 10:27 Plasma/Serum Blood Alcohol < 3.0 mg/dL (<10) Other Laboratory Tests 02/11/25 06:22 Brief Hx & Hospital Course: 74-year-old male with a history of prostate cancer hypertension depression came in for seizures first-time onset. CT head negative MRI brain negative EEG pending Neurology consult by Dr. Anne advised no antiseizure medications rhabdomyolysis ruled out. Dr. Anne cleared for discharge. Patient was advised to follow up with the Dr. Anne for EEG report Consults/Reason for consult Neurology Dr. Anne Operations or Procedures CT head MRI brain EEG report pending Condition at Discharge: Fair Final Diagnosis/Problems List New onset seizure: Ativan p.r.n., CT head negative, brain negative, EEG pending Neurology consult for Dr. Anne appreciated, no seizure medication for the 1st time seizures Rhabdomyolysis ruled out by normal CPK history of prostate cancer Hypertension Depression Discharge Disposition: Home Discharge Instruct/Medications Diet: Regular Activity: Light activity Follow Up/Referral: Follow up with the Neurology Dr. Anne in 10 days for the EEG report Medications: None Scheduled Amlodipine Besylate (Amlodipine Besylate), 1 TAB PO DAILY, (Reported) Aspirin (Aspirin), 1 TAB PO QPM, (Reported) Fluoxetine HCl (Pmdd) (Fluoxetine HCl), 20 MG PO QAM, (Reported) Indomethacin (Indocin), 1 CAP PO BID, (Reported) Lisinopril (Lisinopril), 1 TAB PO QPM, (Reported) Miscellaneous Medications Rosuvastatin Calcium (Rosuvastatin Calcium), 20 MG PO, (Reported) 36 (Time taken for discharge summary 36 minutes) Discharge Statement: "Patient was advised to return to the ER or call 911 if any headaches, dizziness, shortness of breath, chest pain, abdominal pain, bleeding, fevers, or worsening of medical condition. Patient was counseled about treatment plan, medications, possible side effects, patientverbalized understanding. All questions were answered to the best of my ability. This discharge took greater then 30 minutes in planning, reviewing documentation, counseling the patient, and discussing with other team members." ASSESSMENT ASSESSMENT Hospital Course Uneventful Assessment New onset seizure: Ativan p.r.n., CT head negative, brain negative, EEG pending Neurology consult for Dr. Anne appreciated, no seizure medication for the 1st time seizures Rhabdomyolysis ruled out by normal CPK history of prostate cancer Hypertension Depression Date of Service: Feb 13, 2025 Billing Provider: PHANI MICHEL MD Common Visit Codes: [id number] DISCH DAY >30min PHANI MICHEL MD Feb 13, 2025 10:26
--- NOTE | 2025-02-13 11:11 | DVHPN2 ---
Progress Note - Dictate Date Seen: Feb 13, 2025 Medical Necessity Reason Pt with a Central, PICC or Fol: No Subjective Mr. Johns is a 74 years old right-handed gentleman with a history of hypertension, prostate cancer, he was admitted to the [facility] on 02/10/2025 with a chief company of syncopal event. I have seen and examined the patient, talked to his nurse, he is doing fine, no dizziness, no new complaints The case was discussed with Dr. Begum Later, I have discussed with his , who is a retired nurse, she believes the patient had heat stroke. She told me what happened to the patient, which confirmed the history I obtained previously, she said the convulsion was very strong, with foaming in the mouth, lasts for more than 45 seconds, the patient asked her what was going on once the shaking was over T-max on 02/10/2025: 99.9 Urinalysis, 02/10/2025: Unremarkable Plasma alcohol, 02/10/2025: <3 CBC, 02/11/2025: Unremarkable CMP, 02/11/2025: Unremarkable CPK, 02/11/2025: 50 MRI head, 02/11/2025:No evidence of acute infarction, intracranial hemorrhage, mass effect or hydrocephalus. Mild changes of chronic microvascular ischemic disease vital signs Vital Sign Date Time Temp Pulse Resp B/P (MAP) Pulse Ox O2 Delivery O2 Flow Rate FiO2 02/13/25 09:00 96.6 65 16 159/85 (109) 92 96.6 02/12/25 20:00 Room Air* 0 21 Total Intake and Output 02/12/25 02/12/25 02/13/25 15:00 23:00 07:00 Intake Total 1875 ml 720 ml Balance 1875 ml 720 ml medications Current Medications Medications Dose Ordered Sig/Pedro Route Start Time Stop Time Status Last Admin Dose Admin Aspirin 81 mg DAILY PO 02/11/25 10:00 02/13/25 09:37 81 MG Hydralazine HCl 10 mg Q6HP PRN IV 02/10/25 12:15 Fluoxetine HCl 20 mg DAILY PO 02/11/25 10:00 02/13/25 09:36 20 MG Tamsulosin HCl 0.4 mg QPM PO 02/10/25 18:00 02/12/25 17:48 0.4 MG Sodium Chloride 10 ml Q8HR IV 02/10/25 14:00 02/13/25 06:17 10 ML Acetaminophen/ Hydrocodone Bitart 1 tab Q4HP PRN PO 02/10/25 12:15 Ondansetron HCl 4 mg Q4HP PRN IV 02/10/25 12:15 Docusate Sodium 100 mg BIDPRN PRN PO 02/10/25 12:15 Ascorbic Acid 500 mg BID PO 02/10/25 22:00 02/13/25 09:36 500 MG Acetaminophen 650 mg Q6HP PRN PO 02/10/25 12:15 02/10/25 22:07 650 MG Nitroglycerin 0.4 mg Q5MINP PRN SL 02/10/25 12:30 Morphine Sulfate 2 mg Q30M PRN IV 02/10/25 12:30 Lorazepam 1 mg Q5MINP PRN IV 02/11/25 12:15 Sodium Chloride 1,000 ml @ 150 mls/hr Q6H40M IV 02/11/25 13:30 02/13/25 06:10 150 MLS/HR objective General: the patient is well developed and nourished. No acute distress. MENTAL STATUS: Subjective SPEECH, LANGUAGE, HIGHER CORTICAL FUNCTION: no aphasia or dysathria. CRANIAL NERVES: Pupils are equal, round and reactive. EOMs full and conjugate. Mild bilateral gaze evoked nystagmus. Facial sensation intact in all three divisions bilaterally. Mandibular strength intact. Facial muscles symmetrical and strength intact. SENSATION: Sensation to touch and pinprick is normal. MOTOR: Normal tone in the upper and lower extremity. Normal muscle bulk. No fasciculations. No abnormal movements or posturing. Muscle strength of the major groups in the extremities is 5/5. REFLEXES: Deep tendon reflexes normal and symmetrical. No pathological reflexes. CEREBELLAR/COORDINATION: Finger to nose and heel to guillen are normal bilaterally. GAIT/STATION: deferred laboratory and microbiology Laboratory Tests 02/11/25 06:22 Test 02/11/25 06:22 Range/Units Serum Glucose 97 74-106 mg/dL Problem List Passing out Likely had a convulsive syncope Rule out grand mal seizure, less likely Ice pick headache with infrequent attacks I have discussed with his that the patient likely had a convulsive syncope, not epileptic seizure, not heat stroke Assessment/Plan Monitoring Supportive treatment Telemetry EEG Syncopal precautions discussed No medical treatment for the ice speak headache at this time Okay to discharge home from neurologic point of view More recommendation per clinical course This medical document was created using an electronic medical record system with [employer] dictation system. Although this document has been carefully reviewed, there may still be some phonetic and typographical errors. These areas are purely typographical due to imperfections of the software programs, and do not reflect any compromise in the patient's medical care Prognosis poor Plan discussed with: Patient, Spouse, Other Total Time (mins): 40 DELORIS WHITMORE MD Feb 13, 2025 11:11
--- NOTE | 2025-02-17 23:52 | DVHEEG2 ---
Neurology EEG Procedural Note Procedural Note EXAM DATE: 02/12/2025 REFERRING DOCTOR: Dr. Whitmore TECHNIQUE: Eighteen channels of EEG, 2 channels of EOG, and 1 channel of EKG were recorded using the International 10/20 system. CLINICAL DATA: The patient was referred for an EEG evaluation for the evidence of seizure disorder. MEDICATIONS: See chart BACKGROUND ACTIVITY: While the patient was awake, the background activity consisted of well regulated 9 Hz rhythmic waveforms, symmetrically distributed over both posterior quadrants and was reactive to eye opening. ACTIVATION: Hyperventilation: Not done Photic Stimulation: Not done Sleep: Stage I IMPRESSION: This is a normal EEG. No focal, lateralized, or epileptiform features are noted. If clinically indicated to rule out a seizure disorder, recommend repeat EEG with sleep deprivation. The EKG channel showed a regular heart rate of 45/[place] [address] DELORIS WHITMORE MD Feb 17, 2025 23:52
== END 2025-02-13 11:55 | disposition home or self-care (01) | DRG 101 ==
LOC: ER 10:06 → EDBD 10:06 → OVERFLOW 12:24 → TELE-CENTR 21:40
PROVIDERS: ADMIT Family Medicine; ATTEND Family Medicine
DX: G40.209 Localization-related (focal) (partial) symptomatic epilepsy and epileptic syndromes with complex partial seizures, not intractable, without status epilepticus (principal); I10 Essential (primary) hypertension; F32.A Depression, unspecified; E86.0 Dehydration; Z85.46 Personal history of malignant neoplasm of prostate; Z82.49 Family history of ischemic heart disease and other diseases of the circulatory system; Z90.49 Acquired absence of other specified parts of digestive tract
CPT/HCPCS: 36415; 70450; 70551; 80048; 80053; 80320; 81001; 82550; 84484; 85025; 93005; 95819; 99291; G0378